=== PATIENT | male | born 1970 | race Hispanic/Latino ===

== ENCOUNTER 2017-07-16 09:31 | Inpatient (IN) | payer MEDICAID, OTHER ==
[2017-07-16] MEDS ORDERED: Sodium Chloride 0.9% 1,000 ML IV STA (10:10)
[2017-07-16] MEDS ORDERED: HYDROmorphone 2 mg/ml ISec IVP STA (10:10)
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
[2017-07-16 10:23] LABS: BASO # 0.03 K/mm3 (0.0-2.0); BASO % 0.2 % (0.0-3.0); EOS # 0.2 (0.0-0.7); EOS % 0.8 % (1.5-5.0); GRAN % 79.9 % (50.0-68.0); HEMATOCRIT 41.9 % (42.0-52.0); LYMPH # 2.7 (1.2-3.4); LYMPH % 14.2 % (22.0-35.0); MEAN CELL VOLUME 89.7 fl (80.0-105.0); MEAN CORPUSCULAR HEMOGLOBIN 31.5 pg (25.0-35.0); MEAN CORPUSCULAR HGB CONC 35.1 g/dl (31.0-37.0); MONO # 0.9 (0.1-0.6); MONO % 4.9 % (1.0-6.0); RED CELL DISTRIBUTION WIDTH 12.9 % (11.5-14.5); WHITE BLOOD COUNT 18.8 10^3/ul (4.5-11.0)
[2017-07-16 10:33] LABS: INR 0.99 (0.93-1.08); PARTIAL THROMBOPLASTIN TIME 25.9 Seconds (23.7-30.8)
[2017-07-16 10:35] LABS: ALB/GLOB RATIO 1.5 (1.1-1.8); ALKALINE PHOSPHATASE 82 U/L (38-126); ALT/SGPT 30 U/L (7-56); AMYLASE 74 U/L (35-125); AST/SGOT 29 U/L (17-59); BILIRUBIN,TOTAL 0.5 mg/dL (0.2-1.3); BLOOD UREA NITROGEN 13 mg/dL (7-21); CALCIUM 9.6 mg/dL (8.4-10.5); CARBON DIOXIDE 26 mmol/L (21-33); CHLORIDE 103 mmol/L (98-107); GFR AFRICAN-AMERICAN > 60; GLUCOSE,RANDOM 140 mg/dL (70-110); LIPASE 77 U/L (23-300); MAGNESIUM 1.7 mg/dL (1.7-2.2); SODIUM 141 mmol/L (132-148); TOTAL PROTEIN 7.9 g/dL (5.8-8.3)
--- NOTE | 2017-07-16 10:37 | RAD ---
PROCEDURE: CHEST RADIOGRAPH, 1 VIEW HISTORY: upper abdominal pain COMPARISON: Chest radiographs 11/08/2016. FINDINGS: LUNGS: Patient slightly rotated to the right however there is no acute infiltrate identified bilaterally. PLEURA: No pneumothorax or pleural fluid seen. CARDIOVASCULAR: Normal. OSSEOUS STRUCTURES: No significant abnormalities. VISUALIZED UPPER ABDOMEN: Normal. OTHER FINDINGS: None. IMPRESSION: No definite acute cardiopulmonary disease is seen in the interval.
[2017-07-16 10:47] LABS: TROPONIN I < 0.01 ng/mL
[2017-07-16] MEDS ORDERED: HYDROmorphone 1 mg/ml ISec IVP STA (11:08)
[2017-07-16 11:28] LABS: VENOUS BLOOD GAS BASE EXCESS -0.2 mmol/L (0.0-2.0); VENOUS BLOOD PH 7.33 (7.32-7.43)
[2017-07-16 11:52] LABS: URINE BILIRUBIN NEGATIVE (NEGATIVE); URINE BLOOD NEGATIVE (NEGATIVE); URINE GLUCOSE (UA) NEGATIVE (NEGATIVE); URINE KETONE TRACE mg/dL (NEGATIVE); URINE LEUKOCYTE ESTERASE NEGATIVE Leu/uL (NEGATIVE); URINE PROTEIN NEGATIVE mg/dL (<30 mg/dL); URINE UROBILINOGEN 0.2 E.U./dL (<1 E.U./dL)
[2017-07-16 11:57] LABS: URINE APPEARANCE CLEAR (CLEAR); URINE COLOR YELLOW (YELLOW)
--- NOTE | 2017-07-16 14:26 | CT ---
PROCEDURE: CT Abdomen and Pelvis without intravenous contrast HISTORY: severe diffuse pain COMPARISON: None. TECHNIQUE: Helical CT of the abdomen and pelvis was performed without oral or intravenous contrast as per referring physician request . Contrast Dose: None Radiation dose: Total exam DLP = mGy-cm. This CT exam was performed using one or more of the following dose reduction techniques: Automated exposure control, adjustment of the mA and/or kV according to patient size, and/or use of iterative reconstruction technique. FINDINGS: LOWER THORAX: Bilateral basilar dependent atelectasis identified. LIVER: Unremarkable. No gross lesion or ductal dilatation. GALLBLADDER AND BILE DUCTS: Unremarkable. PANCREAS: Unremarkable. No gross lesion or ductal dilatation. SPLEEN: Unremarkable. ADRENALS: Unremarkable. No mass. KIDNEYS AND URETERS: Obstructive uropathy bilaterally however punctate intrarenal calculi are scattered in both kidneys. No perinephric reaction bilaterally. VASCULATURE: Unremarkable. No aortic aneurysm. BOWEL: Unremarkable. No obstruction. No gross mural thickening. Sigmoid diverticulosis without diverticulitis. APPENDIX: Not clearly identified. No definite CT pattern to suggest appendicitis at this time of the study is limited due lack of oral and intravenous contrast agents. PERITONEUM: Unremarkable. No free fluid. No free air. LYMPH NODES: Unremarkable. No enlarged lymph nodes. BLADDER: Unremarkable. REPRODUCTIVE: Enlarged prostate gland. BONES: Grade 1 spondylolisthesis L5-S1. OTHER FINDINGS: None. IMPRESSION: 1. Limited study due to lack of contrast agents however no definite acute abdominal or pelvic findings are appreciable. 2. Sigmoid diverticulosis. 3. Multiple punctate intrarenal calculi bilaterally without obstructive uropathy. 4. Grade 1 spondylolisthesis of L5-S1.
[2017-07-16 14:55] LABS: VENOUS BLOOD GAS BASE EXCESS 2.2 mmol/L (0.0-2.0); VENOUS BLOOD PH 7.37 (7.32-7.43)
[2017-07-16] MEDS ORDERED: Sodium Chloride 0.9% 2,000 ML IV SCH (16:00)
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
[2017-07-16] MEDS: Morphine 2 mg/ml ISec IVP PRN ×2 (17:02→21:10)
[2017-07-16] MEDS: cefTRIAXone 1 gm 1 GM/100 ML BAG IVPB SCH (17:24)
[2017-07-16 17:53] VITALS: TEMP 98.4
[2017-07-16 19:23] VITALS: BMI 23.5
[2017-07-16] MEDS ORDERED: Pneumococcal 23-Valent Vaccine IM ONE (19:23)
[2017-07-16] MEDS: metroNIDAZOLE IV 500 mg/100 ml 500 MG/100 ML BAG IVPB SCH (21:10)
[2017-07-17] MEDS: Morphine 2 mg/ml ISec IVP PRN ×4 (01:34→16:46)
[2017-07-17] MEDS: metroNIDAZOLE IV 500 mg/100 ml 500 MG/100 ML BAG IVPB SCH ×2 (05:13→14:36)
[2017-07-17 06:28] LABS: BASO # 0.03 K/mm3 (0.0-2.0); BASO % 0.4 % (0.0-3.0); EOS # 0.3 (0.0-0.7); EOS % 3.3 % (1.5-5.0); GRAN # 5.61 (1.4-6.5); GRAN % 65.4 % (50.0-68.0); HEMATOCRIT 38.5 % (42.0-52.0); LYMPH # 2.1 (1.2-3.4); MEAN CELL VOLUME 90.2 fl (80.0-105.0); MEAN CORPUSCULAR HEMOGLOBIN 30.4 pg (25.0-35.0); MEAN CORPUSCULAR HGB CONC 33.8 g/dl (31.0-37.0); MEAN PLATELET VOLUME 9.8 fl (7.0-11.0); MONO # 0.6 (0.1-0.6); MONO % 6.9 % (1.0-6.0); RED CELL DISTRIBUTION WIDTH 13.4 % (11.5-14.5); WHITE BLOOD COUNT 8.6 10^3/ul (4.5-11.0)
[2017-07-17 07:00] LABS: ALB/GLOB RATIO 1.5 (1.1-1.8); ALKALINE PHOSPHATASE 57 U/L (38-126); ALT/SGPT 22 U/L (7-56); AST/SGOT 26 U/L (17-59); BILIRUBIN,TOTAL 0.7 mg/dL (0.2-1.3); BLOOD UREA NITROGEN 10 mg/dL (7-21); CALCIUM 8.9 mg/dL (8.4-10.5); CARBON DIOXIDE 28 mmol/L (21-33); CHLORIDE 103 mmol/L (98-107); GFR AFRICAN-AMERICAN > 60; GLUCOSE,RANDOM 104 mg/dL (70-110); POTASSIUM 4.2 mmol/L (3.6-5.0); SODIUM 139 mmol/L (132-148); TOTAL PROTEIN 6.4 g/dL (5.8-8.3)
--- NOTE | 2017-07-17 08:50 | CARD ---
APPROVED REPORT EKG Measurement Heart [id number] <Conclusion> Normal sinus rhythm with sinus arrhythmia LVH by voltage No change except the rate is slower
[2017-07-17] MEDS ORDERED: Propofol 10 mg/ml Inj (20 ML) ONE ×2 (09:55→10:07)
[2017-07-17] MEDS ORDERED: Midazolam 2 MG/2 ML VIAL ONE (09:55)
[2017-07-17] MEDS ORDERED: Lidocaine 1% Inj (20ml) ONE (09:56)
[2017-07-17] MEDS ORDERED: Sodium Chloride 0.9% 1,000 ML IV SCH (10:30)
[2017-07-17 11:26] VITALS: O2SAT 98
[2017-07-17 11:28] VITALS: BP 127/85; PULSE 686; RESP 12
[2017-07-17] MEDS: cefTRIAXone 1 gm 1 GM/100 ML BAG IVPB SCH (11:41)
--- NOTE | 2017-07-17 14:59 | CON ---
DATE: 07/17/2017 GASTROENTEROLOGY CONSULTATION REQUESTING PHYSICIAN: Dr. Hammond. REASON FOR CONSULT: I have been asked to see this 47-year-old male with a history of gastric and duodenal ulcers, who came to the hospital after waking up with severe epigastric pain followed by vomiting, followed by some hematemesis. The patient came to the emergency room for further treatment. CT scan of the abdomen and pelvis was unremarkable for any acute findings. The patient's last endoscopy was 3 years ago. The patient was prescribed Protonix, but stopped taking it as he could not afford it. The patient states that his abdominal pain has improved this morning. He denies any further hematemesis. PAST MEDICAL HISTORY: Notable for gastric and duodenal ulcers. PAST SURGICAL HISTORY: Notable for appendectomy. SOCIAL HISTORY: The patient smokes up to a pack of cigarettes per day. He uses cocaine periodically. FAMILY HISTORY: Noncontributory. PHYSICAL EXAMINATION: GENERAL: Well-developed male lying in bed, no acute distress. VITAL SIGNS: Reveal temperature of 98.4, blood pressure 153/87, heart rate of 80. HEENT: Reveal sclerae to be white. Conjunctivae pink. NECK: Supple. CHEST: Lungs clear. HEART: Exam reveals regular rate and rhythm. ABDOMEN: Soft, mild epigastric tenderness. No rebound. No guarding. EXTREMITIES: Show no edema. LABORATORY DATA: Reveal white blood cell count went down from 18.8 to 8.6, hemoglobin is 13. Chemistries show normal electrolytes including normal BUN. IMPRESSION: A 47-year-old male admitted to the hospital with epigastric pain, nausea, vomiting, hematemesis. We must rule out recurrent ulcer disease. I do not believe the patient has an active GI bleed, the hematemesis maybe secondary to mucosal tear from persistent vomiting. RECOMMENDATIONS: 1. Continue PPI. 2. I will schedule the patient for an upper endoscopy for this morning. Win العلي MD
--- NOTE | 2017-07-17 17:42 | CP.PCM.DIS ---
<Elgin[place]acoma - Last Filed: 07/17/17 17:42> Provider - Provider Date of Admission: 07/16/17 14:07 Attending physician: Naida Hammond MD Primary care physician: NO PRIMARY CARE PROVIDER Time Spent in preparation of Discharge (in minutes): 45 Hospital Course - Lab Results Lab Results: Most Recent Lab Values WBC 8.6 10^3/ul (4.5-11.0) D 07/17/17 06:00 RBC 4.27 10^6/uL (3.5-6.1) 07/17/17 06:00 Hgb 13.0 g/dL (14.0-18.0) L 07/17/17 06:00 Hct 38.5 % (42.0-52.0) L 07/17/17 06:00 MCV 90.2 fl (80.0-105.0) 07/17/17 06:00 MCH 30.4 pg (25.0-35.0) 07/17/17 06:00 MCHC 33.8 g/dl (31.0-37.0) 07/17/17 06:00 RDW 13.4 % (11.5-14.5) 07/17/17 06:00 Plt Count 257 10^3/uL (120.0-450.0) 07/17/17 06:00 MPV 9.8 fl (7.0-11.0) 07/17/17 06:00 Gran % 65.4 % (50.0-68.0) 07/17/17 06:00 Lymph % (Auto) 24.0 % (22.0-35.0) 07/17/17 06:00 [place] % (Auto) 6.9 % (1.0-6.0) H 07/17/17 06:00 Eos % (Auto) 3.3 % (1.5-5.0) 07/17/17 06:00 Baso % (Auto) 0.4 % (0.0-3.0) 07/17/17 06:00 Gran # 5.61 (1.4-6.5) 07/17/17 06:00 Lymph # 2.1 (1.2-3.4) 07/17/17 06:00 [place] # 0.6 (0.1-0.6) 07/17/17 06:00 Eos # 0.3 (0.0-0.7) 07/17/17 06:00 Baso # 0.03 K/mm3 (0.0-2.0) 07/17/17 06:00 PT 10.7 Seconds (9.9-11.8) 07/16/17 09:48 INR 0.99 (0.93-1.08) 07/16/17 09:48 APTT 25.9 Seconds (23.7-30.8) 07/16/17 09:48 pO2 31 mm/Hg (30-55) 07/16/17 14:42 VBG pH 7.37 (7.32-7.43) 07/16/17 14:42 VBG pCO2 49.0 (40-60) 07/16/17 14:42 VBG HCO3 28.3 mmol/l (21-28) H 07/16/17 14:42 VBG Total CO2 29.8 mmol.L (22-28) H 07/16/17 14:42 VBG O2 Sat (Calc) 61.5 % (40-65) 07/16/17 14:42 VBG Base Excess 2.2 mmol/L (0.0-2.0) H 07/16/17 14:42 VBG Potassium 4.9 mmol/L (3.6-5.2) 07/16/17 14:42 Sodium 138.0 mmol/L (132-148) 07/16/17 14:42 Chloride 105.0 mmol/L (98-107) 07/16/17 14:42 Glucose 109 mg/dl (75-110) 07/16/17 14:42 Lactate 1.8 mmol/L (0.7-2.1) 07/16/17 14:42 FiO2 21.0 % 07/16/17 14:42 Sodium 139 mmol/L (132-148) 07/17/17 06:00 Potassium 4.2 mmol/L (3.6-5.0) 07/17/17 06:00 Chloride 103 mmol/L (98-107) 07/17/17 06:00 Carbon Dioxide 28 mmol/L (21-33) 07/17/17 06:00 Anion Gap 12 (10-20) 07/17/17 06:00 BUN 10 mg/dL (7-21) 07/17/17 06:00 Creatinine 0.8 mg/dL (0.5-1.4) 07/17/17 06:00 Est GFR ( Amer) > 60 07/17/17 06:00 Est GFR (Non-Af Amer) > 60 07/17/17 06:00 Random Glucose 104 mg/dL (70-110) 07/17/17 06:00 Calcium 8.9 mg/dL (8.4-10.5) 07/17/17 06:00 Magnesium 1.7 mg/dL (1.7-2.2) 07/16/17 09:48 Total Bilirubin 0.7 mg/dL (0.2-1.3) 07/17/17 06:00 AST 26 U/L (17-59) 07/17/17 06:00 ALT 22 U/L (7-56) 07/17/17 06:00 Alkaline Phosphatase 57 U/L (38-126) 07/17/17 06:00 Lactate Dehydrogenase 511 U/L (333-699) 07/16/17 09:48 Total Creatine Kinase 116 U/L (35-230) 07/16/17 09:48 Troponin I < 0.01 ng/mL 07/16/17 09:48 Total Protein 6.4 g/dL (5.8-8.3) 07/17/17 06:00 Albumin 3.8 g/dL (3.0-4.8) 07/17/17 06:00 Globulin 2.6 gm/dL 07/17/17 06:00 Albumin/Globulin Ratio 1.5 (1.1-1.8) 07/17/17 06:00 Amylase 74 U/L (35-125) 07/16/17 09:48 Lipase 77 U/L (23-300) 07/16/17 09:48 Venous Blood Potassium 4.9 mmol/L (3.6-5.2) 07/16/17 14:42 Urine Color Yellow (YELLOW) 07/16/17 11:30 Urine Appearance Clear (CLEAR) 07/16/17 11:30 Urine pH 6.0 (4.7-8.0) 07/16/17 11:30 Ur Specific [place] 1.020 (1.005-1.035) 07/16/17 11:30 Urine Protein Negative mg/dL (<30 mg/dL) 07/16/17 11:30 Urine Glucose (UA) Negative mg/dL (NEGATIVE) 07/16/17 11:30 Urine Ketones Trace mg/dL (NEGATIVE) H 07/16/17 11:30 Urine Blood Negative (NEGATIVE) 07/16/17 11:30 Urine Nitrate Negative (NEGATIVE) 07/16/17 11:30 Urine Bilirubin Negative (NEGATIVE) 07/16/17 11:30 Urine Urobilinogen 0.2 E.U./dL (<1 E.U./dL) 07/16/17 11:30 Ur Leukocyte Esterase Negative Quinn/uL (NEGATIVE) 07/16/17 11:30 Salicylates < 1 mg/dL (2.0-20.0) L 07/16/17 09:48 Urine Opiates Screen Positive (NEGATIVE) H 07/16/17 11:30 Urine Methadone Screen Negative (NEGATIVE) 07/16/17 11:30 Acetaminophen < 10.0 ug/ml (10.0-20.0) L 07/16/17 09:48 Ur Barbiturates Screen Negative (NEGATIVE) 07/16/17 11:30 Ur Phencyclidine Scrn Negative (NEGATIVE) 07/16/17 11:30 Ur Amphetamines Screen Negative (NEGATIVE) 07/16/17 11:30 U Benzodiazepines Scrn Negative (NEGATIVE) 07/16/17 11:30 U Oth Cocaine Metabols Negative (NEGATIVE) 07/16/17 11:30 U Cannabinoids Screen Positive (NEGATIVE) H 07/16/17 11:30 Alcohol, Quantitative < 10 mg/dL (0-10) 07/16/17 09:40 - Hospital Course Hospital Course: This is a 47 year old man with a past medical history of esophageal, gastric and duodenal ulcers who comes complaining of epigastric abdominal pain and vomiting for 5 hours. The patient reports multiple episodes of hematemesis. He reports eating sausage last night with no pain or discomfort. The patient reports have a normal bowel movement this morning. The patient denies any headache, changes in vision, constipation, or any other complaints. The patient also had an elevated white count upon admission which was more likely due to the vomiting. The patient was admitted and seen by the GI doctor who determined he needed to have a upper endoscopy performed. The results showed a small hiatus hernia, GE junction identified, stomach normal, duodenum normal, and cardia and gastric fundus normal on retroflexion. The patient was afebrile and had no leukocytosis. The patient was seen by the medical team and GI and was cleared to be discharged with Pantoprazole and to follow up with GI and his PMD within one week of discharge. Discharge Exam - Head Exam Head Exam: ATRAUMATIC, NORMAL INSPECTION, NORMOCEPHALIC - Eye Exam Eye Exam: EOMI, Normal appearance, PERRL Pupil Exam: NORMAL ACCOMODATION, PERRL. absent: Irregular, Unequal - ENT Exam ENT Exam: Mucous Membranes Moist - Respiratory Exam Respiratory Exam: Clear to PA & Lateral, NORMAL BREATHING PATTERN, UNREMARKABLE. absent: Accessory Muscle Use, Chest Wall Tenderness, Respiratory Distress - Cardiovascular Exam Cardiovascular Exam: REGULAR RHYTHM, RRR, +S1, +S2. absent: Gallop, Rubs - GI/Abdominal Exam GI & Abdominal Exam: Normal Bowel Sounds, Unremarkable. absent: Diminished Bowel Sounds, Organomegaly - Extremities Exam Extremities exam: full ROM - Neurological Exam Neurological exam: Alert, CN II-XII Intact, Oriented x3, Reflexes Normal - Psychiatric Exam Psychiatric exam: Normal Affect, Normal Mood - Skin Skin Exam: Dry, Intact, Normal Color Discharge Plan - Discharge Medications Prescriptions: Pantoprazole [Protonix EC Tab] 40 mg PO DAILY #30 ect - Follow Up Plan Condition: FAIR Disposition: HOME/ ROUTINE Instructions: Peptic Ulcer (DC), Hiatal Hernia (DC), Gastrointestinal Bleeding (DC), Diet for Ulcers and Gastritis (GEN), Upper Endoscopy (DC), Acute Abdominal Pain (DC), Epigastric Pain (GEN) Additional Instructions: Patient advised to follow up with PMD within one week of discharge. Patient advised to alter diet. Patient advised to followup with GI within one week of discharge. Patient should return to E.D. for any new or worsening symptoms. Avoid heavy lifting, avoid straining with bowel movement. Do not take any ASA, Ibuprofen, including Advil, Motrin or Nuprin, Naproxen, including Aleve and other [id number]-vcajsqzgxatb drugs. Take Protonix 40 PO daily. Referrals: Win العلي MD [Staff Provider] - PCP,NO [Primary Care Provider] - <Naida Hammond - Last Filed: 07/18/17 12:01> Provider - Provider Date of Admission: 07/16/17 14:07 Attending physician: Naida Hammond MD Primary care physician: NO PRIMARY CARE PROVIDER Hospital Course - Lab Results Lab Results: Most Recent Lab Values WBC 8.6 10^3/ul (4.5-11.0) D 07/17/17 06:00 RBC 4.27 10^6/uL (3.5-6.1) 07/17/17 06:00 Hgb 13.0 g/dL (14.0-18.0) L 07/17/17 06:00 Hct 38.5 % (42.0-52.0) L 07/17/17 06:00 MCV 90.2 fl (80.0-105.0) 07/17/17 06:00 MCH 30.4 pg (25.0-35.0) 07/17/17 06:00 MCHC 33.8 g/dl (31.0-37.0) 07/17/17 06:00 RDW 13.4 % (11.5-14.5) 07/17/17 06:00 Plt Count 257 10^3/uL (120.0-450.0) 07/17/17 06:00 MPV 9.8 fl (7.0-11.0) 07/17/17 06:00 Gran % 65.4 % (50.0-68.0) 07/17/17 06:00 Lymph % (Auto) 24.0 % (22.0-35.0) 07/17/17 06:00 [place] % (Auto) 6.9 % (1.0-6.0) H 07/17/17 06:00 Eos % (Auto) 3.3 % (1.5-5.0) 07/17/17 06:00 Baso % (Auto) 0.4 % (0.0-3.0) 07/17/17 06:00 Gran # 5.61 (1.4-6.5) 07/17/17 06:00 Lymph # 2.1 (1.2-3.4) 07/17/17 06:00 [place] # 0.6 (0.1-0.6) 07/17/17 06:00 Eos # 0.3 (0.0-0.7) 07/17/17 06:00 Baso # 0.03 K/mm3 (0.0-2.0) 07/17/17 06:00 PT 10.7 Seconds (9.9-11.8) 07/16/17 09:48 INR 0.99 (0.93-1.08) 07/16/17 09:48 APTT 25.9 Seconds (23.7-30.8) 07/16/17 09:48 pO2 31 mm/Hg (30-55) 07/16/17 14:42 VBG pH 7.37 (7.32-7.43) 07/16/17 14:42 VBG pCO2 49.0 (40-60) 07/16/17 14:42 VBG HCO3 28.3 mmol/l (21-28) H 07/16/17 14:42 VBG Total CO2 29.8 mmol.L (22-28) H 07/16/17 14:42 VBG O2 Sat (Calc) 61.5 % (40-65) 07/16/17 14:42 VBG Base Excess 2.2 mmol/L (0.0-2.0) H 07/16/17 14:42 VBG Potassium 4.9 mmol/L (3.6-5.2) 07/16/17 14:42 Sodium 138.0 mmol/L (132-148) 07/16/17 14:42 Chloride 105.0 mmol/L (98-107) 07/16/17 14:42 Glucose 109 mg/dl (75-110) 07/16/17 14:42 Lactate 1.8 mmol/L (0.7-2.1) 07/16/17 14:42 FiO2 21.0 % 07/16/17 14:42 Sodium 139 mmol/L (132-148) 07/17/17 06:00 Potassium 4.2 mmol/L (3.6-5.0) 07/17/17 06:00 Chloride 103 mmol/L (98-107) 07/17/17 06:00 Carbon Dioxide 28 mmol/L (21-33) 07/17/17 06:00 Anion Gap 12 (10-20) 07/17/17 06:00 BUN 10 mg/dL (7-21) 07/17/17 06:00 Creatinine 0.8 mg/dL (0.5-1.4) 07/17/17 06:00 Est GFR ( Amer) > 60 07/17/17 06:00 Est GFR (Non-Af Amer) > 60 07/17/17 06:00 Random Glucose 104 mg/dL (70-110) 07/17/17 06:00 Calcium 8.9 mg/dL (8.4-10.5) 07/17/17 06:00 Magnesium 1.7 mg/dL (1.7-2.2) 07/16/17 09:48 Total Bilirubin 0.7 mg/dL (0.2-1.3) 07/17/17 06:00 AST 26 U/L (17-59) 07/17/17 06:00 ALT 22 U/L (7-56) 07/17/17 06:00 Alkaline Phosphatase 57 U/L (38-126) 07/17/17 06:00 Lactate Dehydrogenase 511 U/L (333-699) 07/16/17 09:48 Total Creatine Kinase 116 U/L (35-230) 07/16/17 09:48 Troponin I < 0.01 ng/mL 07/16/17 09:48 Total Protein 6.4 g/dL (5.8-8.3) 07/17/17 06:00 Albumin 3.8 g/dL (3.0-4.8) 07/17/17 06:00 Globulin 2.6 gm/dL 07/17/17 06:00 Albumin/Globulin Ratio 1.5 (1.1-1.8) 07/17/17 06:00 Amylase 74 U/L (35-125) 07/16/17 09:48 Lipase 77 U/L (23-300) 07/16/17 09:48 Venous Blood Potassium 4.9 mmol/L (3.6-5.2) 07/16/17 14:42 Urine Color Yellow (YELLOW) 07/16/17 11:30 Urine Appearance Clear (CLEAR) 07/16/17 11:30 Urine pH 6.0 (4.7-8.0) 07/16/17 11:30 Ur Specific [place] 1.020 (1.005-1.035) 07/16/17 11:30 Urine Protein Negative mg/dL (<30 mg/dL) 07/16/17 11:30 Urine Glucose (UA) Negative mg/dL (NEGATIVE) 07/16/17 11:30 Urine Ketones Trace mg/dL (NEGATIVE) H 07/16/17 11:30 Urine Blood Negative (NEGATIVE) 07/16/17 11:30 Urine Nitrate Negative (NEGATIVE) 07/16/17 11:30 Urine Bilirubin Negative (NEGATIVE) 07/16/17 11:30 Urine Urobilinogen 0.2 E.U./dL (<1 E.U./dL) 07/16/17 11:30 Ur Leukocyte Esterase Negative Quinn/uL (NEGATIVE) 07/16/17 11:30 Salicylates < 1 mg/dL (2.0-20.0) L 07/16/17 09:48 Urine Opiates Screen Positive (NEGATIVE) H 07/16/17 11:30 Urine Methadone Screen Negative (NEGATIVE) 07/16/17 11:30 Acetaminophen < 10.0 ug/ml (10.0-20.0) L 07/16/17 09:48 Ur Barbiturates Screen Negative (NEGATIVE) 07/16/17 11:30 Ur Phencyclidine Scrn Negative (NEGATIVE) 07/16/17 11:30 Ur Amphetamines Screen Negative (NEGATIVE) 07/16/17 11:30 U Benzodiazepines Scrn Negative (NEGATIVE) 07/16/17 11:30 U Oth Cocaine Metabols Negative (NEGATIVE) 07/16/17 11:30 U Cannabinoids Screen Positive (NEGATIVE) H 07/16/17 11:30 Alcohol, Quantitative < 10 mg/dL (0-10) 07/16/17 09:40 Attending/Attestation - Attestation I have personally seen and examined this patient.: Yes I have fully participated in the care of the patient.: Yes I have reviewed all pertinent clinical information, including history, physical exam and plan: Yes Notes (Text): 07/17/17 47 year old male with past medical history of PUD who presented with complaint of epigastric pain and hematemesis. He was on iv protonix, analgesics and antiemetic prn. His last EGD showed gastric, duodenal and esophageal ulcers. He had leukocytosis, possibly reactive which improved. CT abd/pelvis showed sigmoid diverticulosis. He was seen by GI and underwent EGD as above. His diet was advanced which he tolerted. Patient will be discharged home to follow up with his pmd. Counselled on avoiding NSAIDs. Follow up with GI for biopsy results. Naida Hammond MD Hospitalist.
== END 2017-07-17 18:14 | disposition home or self-care (01) | DRG 379 ==
LOC: ED 09:31 → ERH 14:07 → 5RSO 15:38
PROVIDERS: ADMIT Internal Medicine; ATTEND Internal Medicine
PROC: 0DJ08ZZ Inspection of Upper Intestinal Tract, Via Natural or Artificial Opening Endoscopic (ICD-10-PCS; principal; 2017-07-17 10:30)
DX: K92.0 Hematemesis (principal); D72.829 Elevated white blood cell count, unspecified; K57.30 Diverticulosis of large intestine without perforation or abscess without bleeding; K44.9 Diaphragmatic hernia without obstruction or gangrene; K21.9 Gastro-esophageal reflux disease without esophagitis; M43.16 Spondylolisthesis, lumbar region; N20.0 Calculus of kidney; F17.210 Nicotine dependence, cigarettes, uncomplicated; Z87.11 Personal history of peptic ulcer disease; Z90.49 Acquired absence of other specified parts of digestive tract

== ENCOUNTER 2018-02-15 08:02 | Emergency (ER) | payer MEDICAID, OTHER ==
[2018-02-15 08:06] VITALS: RESP 18; TEMP 97.8
[2018-02-15 08:07] VITALS: BMI 21.1
--- NOTE | 2018-02-15 08:36 | ED PDOC ---
Arrival/HPI - General Chief Complaint: Back Pain Time Seen by Provider: 02/15/18 08:16 Historian: Patient - History of Present Illness Narrative History of Present Illness (Text): 02/15/18 08:30 48 year old male, whose PMH includes GERD, neuropathy, and chronic lower back pain, who presents to the emergency department complaining of lower back pain that radiates to the left leg. Patient reports the pain became worse this morning as he was walking in his kitchen and could not move causing him to call EMT for assistance. Patient denies any dysuria, hematuria, shortness of breath, chest pain, or other complaints. PMD: None Time/Duration: Prior to Arrival Symptom Onset: Gradual Symptom Course: Unchanged Activities at Onset: Light Context: Walking, Home Past Medical History - Provider Review Nursing Documentation Reviewed: Yes - Past History Past History: No Previous - Infectious Disease Hx of Infectious Diseases: None - Tetanus Immunization Tetanus Immunization: Up to Date - Past Medical History Past Medical History: Unable to Obtain - Cardiac Hx Cardiac Disorders: No - Pulmonary Hx Respiratory Disorders: No - Neurological Hx Neurological Disorder: No - HEENT Hx HEENT Disorder: No - Renal Hx Renal Disorder: No - Endocrine/Metabolic Hx Endocrine Disorders: No - Hematological/Oncological Hx Blood Transfusions: No - Integumentary Hx Dermatological Disorder: Yes Other/Comment: hx snake bite - Musculoskeletal/Rheumatological Hx Musculoskeletal Disorders: No - Gastrointestinal Hx Gastrointestinal Disorders: Yes Hx Gastroesophageal Reflux: Yes - Genitourinary/Gynecological Hx Genitourinary Disorders: No - Psychiatric Hx Psychophysiologic Disorder: Yes Hx Substance Use: Yes (marijuana) Other/Comment: suicidal ideation and attempt/drug overdose w/etoh use and cut wrists - Past Surgical History Past Surgical History: No Previous - Surgical History Hx Appendectomy: Yes - Anesthesia Hx Anesthesia Reactions: No Hx Malignant Hyperthermia: No - Suicidal Assessment Feels Threatened In Home Enviroment: No Family/Social History - Physician Review Nursing Documentation Reviewed: Yes Family/Social History: Unknown Family HX Smoking Status: Former Smoker Hx Alcohol Use: Yes (quit 8 months ago) Hx Substance Use: Yes (marijuana) Hx Substance Use Treatment: No Allergies/Home Meds Allergies/Adverse Reactions: Allergies No Known Allergies Allergy (Verified 02/15/18 08:13) Review of Systems - Physician Review All systems were reviewed & negative as marked: Yes - Review of Systems Constitutional: absent: Fevers Respiratory: absent: SOB Cardiovascular: absent: Chest Pain Genitourinary Male: absent: Dysuria Musculoskeletal: Back Pain (lower back pain ) Physical Exam Vital Signs Reviewed: Yes Vital Signs Temp Pulse Resp BP Pulse Ox 02/15/18 13:10 97.8 F 56 L 105/67 96 02/15/18 11:30 97.8 F 66 18 126/71 97 02/15/18 11:25 60 18 134/74 98 02/15/18 08:06 97.8 F 84 18 136/80 96 Temperature: Afebrile Blood Pressure: Normal Pulse: Regular Respiratory Rate: Normal Appearance: Positive for: Well-Appearing, Non-Toxic, Comfortable Pain Distress: Mild Mental Status: Positive for: Alert and Oriented X 3 - Systems Exam Head: Present: Atraumatic, Normocephalic Pupils: Present: PERRL Extroacular Muscles: Present: EOMI Conjunctiva: Present: Normal Respiratory/Chest: Present: Clear to Auscultation, Good Air Exchange. No: Respiratory Distress, Accessory Muscle Use, Wheezes, Rales, Rhonchi Cardiovascular: Present: Regular Rate and Rhythm, Normal S1, S2. No: Murmurs Abdomen: No: Tenderness, Distention, Peritoneal Signs, Rebound, Guarding Back: Present: Paraspinal Tenderness (lumbar tenderness), Pain with Leg Raise ( left leg). No: Normal Inspection Lower Extremity: Present: Normal Inspection, NORMAL PULSES, Normal ROM, Neurovascularly Intact. No: Edema Neurological: Present: GCS=15, CN II-XII Intact, Speech Normal, Other ((+)4/5 plantar flexion on left) Skin: Present: Warm, Dry, Normal Color. No: Rashes Psychiatric: Present: Alert, Oriented x 3, Normal Insight, Normal Concentration Medical Decision Making ED Course and Treatment: 02/15/18 Impression: 48 year old male with paraspinal lumbar tenderness complaining of lower back pain. Plan: -- Flexeril and Toradol -- Reassess and disposition Progress Notes: 02/15/18 12:[address] Carias, who is aware of plan and agrees to see patient tomorrow in his office. 02/15/18 14:22 case ambulated out of emergency room in [facility]. pain improved. - Lab Interpretations Lab Results: 02/15/18 10:15 02/15/18 10:15 Lab Results 02/15/18 10:15: Urine Color Yellow, Urine Appearance Clear, Urine pH 7.0, Ur Specific [place] 1.015, Urine Protein Negative, Urine Glucose (UA) Negative, Urine Ketones Negative, Urine Blood Negative, Urine Nitrate Negative, Urine Bilirubin Negative, Urine Urobilinogen 0.2, Ur Leukocyte Esterase Negative 02/15/18 10:15: Sodium 139, Potassium 4.8, Chloride 101, Carbon Dioxide 30, Anion Gap 13, BUN 11, Creatinine 0.9, Est GFR ( Amer) > 60, Est GFR (Non- Af Amer) > 60, Random Glucose 95, Calcium 9.7, Total Bilirubin 1.0, AST 31, ALT 40, Alkaline Phosphatase 66, Total Protein 7.4, Albumin 4.4, Globulin 2.9, Albumin/Globulin Ratio 1.5 02/15/18 10:15: PT 11.5, INR 1.00, APTT 34.4 02/15/18 10:15: WBC 7.8, RBC 4.59, Hgb 14.4, Hct 42.1, MCV 91.7, MCH 31.4, MCHC 34.2, RDW 13.2, Plt Count 307, MPV 9.7, Gran % 56.6, Lymph % (Auto) 30.1, [place] % (Auto) 9.1 H, Eos % (Auto) 3.8, Baso % (Auto) 0.4, Gran # 4.43, Lymph # (Auto ) 2.4, [place] # (Auto) 0.7 H, Eos # (Auto) 0.3, Baso # (Auto) 0.03 - RAD Interpretation Radiology Orders: 02/15/18 09:21 SPINAL CANAL LUMBAR W/O CONT [MRI] Stat - Medication Orders Current Medication Orders: Discontinued Medications Acetaminophen (Tylenol 325mg Tab) 975 mg PO STAT STA Stop: 02/15/18 09:23 Last Admin: 02/15/18 09:49 Dose: Not Given Non-Admin Reason: Patient Refused Cyclobenzaprine HCl (Flexeril) 10 mg PO STAT STA Stop: 02/15/18 08:33 Last Admin: 02/15/18 09:22 Dose: 10 mg Ketorolac Tromethamine (Toradol) 30 mg IM STAT STA Stop: 02/15/18 08:33 Last Admin: 02/15/18 09:21 Dose: 30 mg MAR Pain Assessment Document 02/15/18 09:21 SZA (Rec: 02/15/18 09:22 SZA [id number]) Pain Reassessment Is this a pain reassessment? No Sleep Is patient sleeping during reassessment? Yes Pain Scale Used Pain Scale Used Numeric Description Description Intermittent Intensity of Pain at present 5 IM Administration Charges Document 02/15/18 09:21 SZA (Rec: 02/15/18 09:22 SZA [id number]) Charges for Administration # of IM Administrations 1 Lidocaine (Lidoderm) 1 ea TD STAT STA Stop: 02/15/18 09:23 Last Admin: 02/15/18 09:49 Dose: 1 ea MAR Transdermal Patch Site Document 02/15/18 09:49 SZA (Rec: 02/15/18 09:49 SZA [id number]) Transdermal Patch Site Transdermal Patch Site Right Lower Back - Scribe Statement The provider has reviewed the documentation as recorded by the Neilibe Paola Meredith Provider Scribe Attestation: All medical record entries made by the Scribe were at my direction and personally dictated by me. I have reviewed the chart and agree that the record accurately reflects my personal performance of the history, physical exam, medical decision making, and the department course for this patient. I have also personally directed, reviewed, and agree with the discharge instructions and disposition. Disposition/Present on Arrival - Present on Arrival Any Indicators Present on Arrival: No History of DVT/PE: No History of Uncontrolled Diabetes: No Urinary Catheter: No History of Decub. Ulcer: No History Surgical Site Infection Following: None - Disposition Have Diagnosis and Disposition been Completed?: Yes Diagnosis: Spondylolisthesis Disposition: HOME/ ROUTINE Disposition Time: 01:00 Condition: STABLE Discharge Instructions (ExitCare): Spondylolisthesis Additional Instructions: please follow up with doctor/specialist. return to emergency room worsening symptoms or concerns. Prescriptions: Cyclobenzaprine [Cyclobenzaprine HCl] 10 mg PO DAILY PRN #10 tab PRN Reason: Muscle Spasm Lidocaine 5% [Lidoderm] 1 ea TD DAILY PRN #4 patch PRN Reason: Pain, Mild (1-3) Naproxen 500 mg PO BID PRN #14 tab PRN Reason: Pain, Mild (1-3) Referrals: Giovanni Garnett MD [Staff Provider] - Follow up with primary Visco,Dom Alfonso MD [Staff Provider] - Follow up with primary Forms: [email or web address] (Malay)
[2018-02-15] MEDS ORDERED: Lidocaine 5% Patch TD STA (09:22)
[2018-02-15 10:19] LABS: BASO # 0.03 K/mm3 (0.0-2.0); BASO % 0.4 % (0.0-3.0); EOS # 0.3 (0.0-0.7); EOS % 3.8 % (1.5-5.0); GRAN # 4.43 (1.4-6.5); GRAN % 56.6 % (50.0-68.0); HEMOGLOBIN 14.4 g/dL (14.0-18.0); LYMPH # 2.4 (1.2-3.4); LYMPH % 30.1 % (22.0-35.0); MEAN CELL VOLUME 91.7 fl (80.0-105.0); MEAN CORPUSCULAR HEMOGLOBIN 31.4 pg (25.0-35.0); MEAN CORPUSCULAR HGB CONC 34.2 g/dl (31.0-37.0); MEAN PLATELET VOLUME 9.7 fl (7.0-11.0); MONO # 0.7 (0.1-0.6); MONO % 9.1 % (1.0-6.0); RBC 4.59 10^6/uL (3.5-6.1); RED CELL DISTRIBUTION WIDTH 13.2 % (11.5-14.5); URINE BILIRUBIN NEGATIVE (NEGATIVE); URINE BLOOD NEGATIVE (NEGATIVE); URINE GLUCOSE (UA) NEGATIVE (NEGATIVE); URINE LEUKOCYTE ESTERASE NEGATIVE Leu/uL (NEGATIVE); URINE PROTEIN NEGATIVE mg/dL (<30 mg/dL); URINE UROBILINOGEN 0.2 E.U./dL (<1 E.U./dL); WHITE BLOOD COUNT 7.8 10^3/ul (4.5-11.0)
[2018-02-15 10:20] LABS: URINE APPEARANCE CLEAR (CLEAR); URINE COLOR YELLOW (YELLOW)
[2018-02-15 10:29] LABS: ALB/GLOB RATIO 1.5 (1.1-1.8); ALBUMIN 4.4 g/dL (3.0-4.8); ALT/SGPT 40 U/L (7-56); AST/SGOT 31 U/L (17-59); BLOOD UREA NITROGEN 11 mg/dL (7-21); CALCIUM 9.7 mg/dL (8.4-10.5); GFR AFRICAN-AMERICAN > 60; GFR NON-AFRICAN AMERICAN > 60
[2018-02-15 10:31] LABS: PARTIAL THROMBOPLASTIN TIME 34.4 Seconds (25.1-36.5); PROTHROMBIN TIME 11.5 SECONDS (9.4-12.5)
--- NOTE | 2018-02-15 11:15 | MRI ---
PROCEDURE: MR LUMBAR SPINE WITHOUT CONTRAST HISTORY: low back pain COMPARISON: None available. TECHNIQUE: Multiecho multiplanar sequences were performed through the lumbar spine without the use of intravenous contrast. FINDINGS: Normal lumbar lordosis. Vertebral body heights are preserved. Marrow signal unremarkable. Conus medullaris unremarkable at the level of T12 Paraspinal soft tissues are unremarkable. T12-L1: No disc herniation, spinal canal stenosis or neural foraminal narrowing. L1-2: Disc degeneration and disc bulging without stenosis L2-3: Mild disc degeneration without stenosis L3-4: No disc herniation, spinal canal stenosis or neural foraminal narrowing. L4-5: No disc herniation, spinal canal stenosis or neural foraminal narrowing. L5-S1: There is spondylolysis and spondylolisthesis at this level. There is 10 mm of anterior subluxation. There is disc degeneration and disc bulging with severe bilateral foraminal stenosis. There is no central stenosis OTHER FINDINGS: None. IMPRESSION: L5-S1 spondylolisthesis with severe foraminal stenosis. See comments
[2018-02-15 13:19] VITALS: BP 105/67; PULSE 56; O2SAT 96
== END 2018-02-15 13:19 | disposition home or self-care (01) ==
LOC: ED 08:02
DX: M43.17 Spondylolisthesis, lumbosacral region (principal); Z87.891 Personal history of nicotine dependence
CPT/HCPCS: 72148; 80053; 81003; 85025; 85610; 85730; 96372; 99284; J1885

== ENCOUNTER 2018-04-12 10:56 | Emergency (ER) | payer OTHER ==
[2018-04-12 10:57] VITALS: BMI 21.1
[2018-04-12 11:27] VITALS: TEMP 98.8
[2018-04-12] MEDS ORDERED: TDAP Vaccine 0.5 mL Syr IM ONE (11:30)
--- NOTE | 2018-04-12 11:36 | ED PDOC ---
Arrival/HPI - General Chief Complaint: Abnormal Skin Integrity Time Seen by Provider: 04/12/18 11:11 Historian: Patient - History of Present Illness Narrative History of Present Illness (Text): 04/12/18 11:32 48yr old male presents today with laceration to the right cheek. pt states the metal bracket to the ceiling tiles fell hitting him in the right cheek. pt c/o 4 /10 pain to the laceration site. pt is unsure of last tetanus shot. incident occurred prior to arrival. no LOC. no headaches, dizziness weakness. no other complaints. Time/Duration: Prior to Arrival Symptom Onset: Sudden Symptom Course: Improving Past Medical History - Provider Review Nursing Documentation Reviewed: Yes - Travel History Have you recently traveled outside [place] w/in the past 3 mons?: No - Past History Past History: No Previous - Infectious Disease Hx of Infectious Diseases: None - Tetanus Immunization Tetanus Immunization: Up to Date - Past Medical History Past Medical History: Unable to Obtain - Cardiac Hx Cardiac Disorders: No - Pulmonary Hx Respiratory Disorders: No - Neurological Hx Neurological Disorder: No - HEENT Hx HEENT Disorder: No - Renal Hx Renal Disorder: No - Endocrine/Metabolic Hx Endocrine Disorders: No - Hematological/Oncological Hx Blood Transfusions: No - Integumentary Hx Dermatological Disorder: Yes Other/Comment: hx snake bite - Musculoskeletal/Rheumatological Hx Musculoskeletal Disorders: No - Gastrointestinal Hx Gastrointestinal Disorders: Yes Hx Gastroesophageal Reflux: Yes - Genitourinary/Gynecological Hx Genitourinary Disorders: No - Psychiatric Hx Psychophysiologic Disorder: Yes Hx Substance Use: Yes (marijuana) Other/Comment: suicidal ideation and attempt/drug overdose w/etoh use and cut wrists - Past Surgical History Past Surgical History: No Previous - Surgical History Hx Appendectomy: Yes - Anesthesia Hx Anesthesia Reactions: No Hx Malignant Hyperthermia: No - Suicidal Assessment Feels Threatened In Home Enviroment: No Family/Social History - Physician Review Nursing Documentation Reviewed: Yes Family/Social History: Unknown Family HX Smoking Status: Former Smoker Hx Alcohol Use: Yes (quit 8 months ago) Hx Substance Use: Yes (marijuana) Hx Substance Use Treatment: No Allergies/Home Meds Allergies/Adverse Reactions: Allergies No Known Allergies Allergy (Verified 04/12/18 11:26) Review of Systems - Review of Systems Constitutional: absent: Fatigue, Fevers Eyes: absent: Vision Changes, Photophobia, Eye Pain ENT: absent: Sore Throat, Sinus Congestion Respiratory: absent: SOB, Cough Cardiovascular: absent: Chest Pain, Palpitations Gastrointestinal: absent: Abdominal Pain, Diarrhea, Vomiting Skin: Laceration. absent: Pruritis Neurological: absent: Headache, Dizziness Physical Exam Vital Signs Reviewed: Yes Vital Signs Temp Pulse Resp BP Pulse Ox 04/12/18 12:09 97 04/12/18 12:08 80 17 115/78 97 04/12/18 11:26 98.8 F 82 18 113/83 96 Temperature: Afebrile Blood Pressure: Normal Pulse: Regular Respiratory Rate: Normal Appearance: Positive for: Well-Appearing, Non-Toxic, Comfortable Pain Distress: None Mental Status: Positive for: Alert and Oriented X 3 - Systems Exam Head: Present: Laceration (there is a 3cm linear superficial laceration noted noted to the right cheek. laceration is NOT through and through. no active bleeding; no step offs or crepitus. ). No: Tenderness (no bony tenderness, no step offs ), Contusion, Swelling, Ecchymosis Pupils: Present: PERRL Extroacular Muscles: Present: EOMI Conjunctiva: Present: Normal Mouth: Present: Moist Mucous Membranes, Normal Lips, Normal Tounge. No: Drooling, Trismus Nose (External): Present: Atraumatic Nose (Internal): Present: Normal Inspection Neck: Present: Normal Range of Motion, Trachea Midline. No: MIDLINE TENDERNESS Respiratory/Chest: Present: Clear to Auscultation, Good Air Exchange. No: Respiratory Distress, Accessory Muscle Use Cardiovascular: Present: Regular Rate and Rhythm, Normal S1, S2. No: Murmurs Upper Extremity: Present: Normal ROM Lower Extremity: Present: Normal ROM Neurological: Present: GCS=15 Skin: Present: Warm, Dry, Normal Color Psychiatric: Present: Alert, Oriented x 3 Medical Decision Making ED Course and Treatment: 04/12/18 11:36 Patient is nontoxic well appearing in no distress. Vital signs are stable. Wound irrigated well with high pressure irrigation Tetanus updated pt refused medications for pain. Laceration repair: dermabond applied. Patient was advised to keep the wound clean and dry.Advised to return immediately if signs of infection develop or return if any other concerning symptoms develop Patient verbalizes understanding of discharge instructions and need for immediate followup. all aspects of this case were discussed the attending of record. Impression: Laceration, facial Motrin every 6 hours as needed for pain Keflex: 1 capsule 4 times daily x 5 days. Keep the wound clean and dry Return immediately if signs of infection develop: High fevers, increasing pain, redness, swelling, purulent discharge Follow up with the Plastic surgeon] within the next 2 days. Followup with primary care physician within the next 2 days Return if any other concerning symptoms develop - Medication Orders Current Medication Orders: Discontinued Medications Tetanus/Reduced Diphtheria/Acell Pertussis (Boostrix Vaccine Inj) 0.5 ml IM .ONCE ONE Stop: 04/12/18 11:31 Last Admin: 04/12/18 12:07 Dose: 0.5 ml Immunization Registry Document 04/12/18 12:07 SF (Rec: 04/12/18 12:07 [id number]) Immunization Registry Consent Date 02/15/18 Procedure: Wound Repair - Procedure Procedure: Wound Repair: laceration, right cheek - Performed by Performed by: Mid-level Provider - Indications Indication(s):: Laceration - Location Shape:: Linear Dimensions Length cm: 3cm Depth:: Epidermis - Debris Debris:: None - Irrigated Irrigated with ml of normal saline: copious amounts of NS using high pressure irrigation - Wound repair method Dre:: Tissue glue - Complications Complications: none - Patient tolerated procedure Patient Tolerated Procedure:: Well Disposition/Present on Arrival - Present on Arrival Any Indicators Present on Arrival: No History of DVT/PE: No History of Uncontrolled Diabetes: No Urinary Catheter: No History of Decub. Ulcer: No History Surgical Site Infection Following: None - Disposition Have Diagnosis and Disposition been Completed?: Yes Diagnosis: Laceration of face Disposition: HOME/ ROUTINE Disposition Time: 11:37 Patient Plan: Discharge Condition: GOOD Discharge Instructions (ExitCare): Laceration Repair With Glue (DC) Additional Instructions: Motrin every 6 hours as needed for pain Keflex: 1 capsule 4 times daily x 5 days. Keep the wound clean and dry Return immediately if signs of infection develop: High fevers, increasing pain, redness, swelling, purulent discharge Follow up with the Plastic surgeon] within the next 2 days. Followup with primary care physician within the next 2 days Return if any other concerning symptoms develop Prescriptions: Cephalexin [Keflex] 500 mg PO QID #20 capsule Referrals: Cesar Brewer MD [Staff Provider] - Follow up with primary MichaelCan MD [Staff Provider] - Follow up with primary Forms: [employer] (Somali), WORK NOTE
[2018-04-12 12:09] VITALS: BP 115/78; PULSE 80; RESP 17; O2SAT 97
== END 2018-04-12 12:09 | disposition home or self-care (01) ==
LOC: ED 10:56
DX: S01.411A Laceration without foreign body of right cheek and temporomandibular area, initial encounter (principal); W20.8XXA Other cause of strike by thrown, projected or falling object, initial encounter; Z87.891 Personal history of nicotine dependence; Z23 Encounter for immunization

== ENCOUNTER 2018-04-18 08:55 | Inpatient (IN) | payer OTHER ==
[2018-04-18 09:05] VITALS: BMI 21.9
[2018-04-18] MEDS ORDERED: Morphine 2 mg/ml ISec IVP STA (09:27)
[2018-04-18] MEDS ORDERED: Pantoprazole 40mg/100mL NS 40 MG/100 ML BAG IVPB SCH (09:30)
[2018-04-18 09:43] LABS: BASO # 0.01 K/mm3 (0.0-2.0); BASO % 0.1 % (0.0-3.0); EOS # 0.1 (0.0-0.7); GRAN # 12.07 (1.4-6.5); GRAN % 82.9 % (50.0-68.0); HEMOGLOBIN 14.2 g/dL (14.0-18.0); LYMPH # 1.6 (1.2-3.4); MEAN CELL VOLUME 91.3 fl (80.0-105.0); MEAN CORPUSCULAR HEMOGLOBIN 31.6 pg (25.0-35.0); MEAN CORPUSCULAR HGB CONC 34.6 g/dl (31.0-37.0); MEAN PLATELET VOLUME 9.8 fl (7.0-11.0); MONO # 0.7 (0.1-0.6); RBC 4.49 10^6/uL (3.5-6.1); RED CELL DISTRIBUTION WIDTH 13.2 % (11.5-14.5); WHITE BLOOD COUNT 14.6 10^3/ul (4.5-11.0)
[2018-04-18 09:54] LABS: ALB/GLOB RATIO 1.7 (1.1-1.8); ALBUMIN 4.7 g/dL (3.0-4.8); ALT/SGPT 37 U/L (7-56); AST/SGOT 34 U/L (17-59); BLOOD UREA NITROGEN 17 mg/dL (7-21); CALCIUM 9.5 mg/dL (8.4-10.5); GFR AFRICAN-AMERICAN > 60; GFR NON-AFRICAN AMERICAN > 60; LIPASE 67 U/L (23-300)
[2018-04-18] MEDS ORDERED: Iohexol 350 MG/100 ML VIAL ONE (10:03)
[2018-04-18 10:05] LABS: TROPONIN I < 0.01 ng/mL
[2018-04-18 10:14] LABS: INR 0.91 (0.93-1.08); PARTIAL THROMBOPLASTIN TIME 29.2 Seconds (25.1-36.5); PROTHROMBIN TIME 10.5 SECONDS (9.4-12.5)
--- NOTE | 2018-04-18 10:29 | ED PDOC ---
Arrival/HPI - General Historian: Patient - General Chief Complaint: GI Problem Time Seen by Provider: 04/18/18 08:58 - History of Present Illness Narrative History of Present Illness (Text): 04/18/18 11:16 This is a 48 yo M with PMH of GERD, extensive GI ulcer disease (gastric, duodenal, and esophageal), chronic back pain, and medication non-compliance who presents with complaint of frequent uncontrolled emesis and now hematemesis since 4am today. Reports awoke to vomiting, mostly clear vomitus, but after 2nd hour of non-stop vomiting, started having severe abdominal pain and began vomiting dark blood. Semmes at bedside during exam shows copious clear discharge with scattered dark red blood. Patient's primary complaint is abdominal pain, repeatedly asking for something for the pain throughout exam. Denies any prior episode of hematemesis like this, denies melena. Reports not taking his Protonix due to switching to Vegan diet for last 7 months, which he felt was taking care of his GI ulcer disease. Pt unable to state when he last followed up with GI. HPI and ROS limited as patient keeps reverting to asking for pain medications after each question, won't be reoriented. PMH: as above PSH: Appendectomy Fam Hx: denies Soc Hx: 30 year pack history of smoking. Former drinker. Former recreational cocaine abuser. Still intermittently using marijuana. Denies other illicit drug usage. PMD: Dr. Tomlin ([facility]) Past Medical History - Provider Review Nursing Documentation Reviewed: Yes - Past History Past History: No Previous - Infectious Disease Hx of Infectious Diseases: None - Tetanus Immunization Tetanus Immunization: Up to Date - Past Medical History Past Medical History: Unable to Obtain - Cardiac Hx Cardiac Disorders: No - Pulmonary Hx Respiratory Disorders: No - Neurological Hx Neurological Disorder: No - HEENT Hx HEENT Disorder: No - Renal Hx Renal Disorder: No - Endocrine/Metabolic Hx Endocrine Disorders: No - Hematological/Oncological Hx Blood Transfusions: No - Integumentary Hx Dermatological Disorder: Yes Other/Comment: hx snake bite - Musculoskeletal/Rheumatological Hx Musculoskeletal Disorders: No - Gastrointestinal Hx Gastrointestinal Disorders: Yes Hx Gastroesophageal Reflux: Yes - Genitourinary/Gynecological Hx Genitourinary Disorders: No - Psychiatric Hx Psychophysiologic Disorder: Yes Hx Substance Use: Yes (marijuana) Other/Comment: suicidal ideation and attempt/drug overdose w/etoh use and cut wrists - Past Surgical History Past Surgical History: No Previous - Surgical History Hx Appendectomy: Yes - Anesthesia Hx Anesthesia Reactions: No Hx Malignant Hyperthermia: No - Suicidal Assessment Feels Threatened In Home Enviroment: No Family/Social History - Physician Review Nursing Documentation Reviewed: Yes Family/Social History: No Known Family HX Smoking Status: Former Smoker Hx Alcohol Use: Yes (Hx of ETOH abuse) Hx Substance Use: Yes (marijuana) Hx Substance Use Treatment: No Allergies/Home Meds Allergies/Adverse Reactions: Allergies No Known Allergies Allergy (Verified 04/18/18 09:08) Home Medications: Home Meds Medication Instructions Recorded Confirmed No Known Home Med 04/18/18 04/18/18 Review of Systems - Physician Review All systems were reviewed & negative as marked: Yes (as per HPI) - Review of Systems Systems not reviewed;Unavailable: Other (patient primarily focused on pain, only answering so many questions before solely focusing on pain) Constitutional: absent: Fevers Eyes: absent: Vision Changes ENT: Sore Throat. absent: Rhinorrhea, Epistaxis, Sinus Congestion Respiratory: absent: SOB Cardiovascular: Chest Pain (midline chest pain with vomiting). absent: Palpitations, TIMMONS, Syncope Gastrointestinal: Abdominal Pain, Nausea, Vomiting, Hematemesis. absent: Constipation, Diarrhea Genitourinary Male: Normal. absent: Dysuria, Frequency, Hematuria Musculoskeletal: Back Pain (chronic) Skin: Normal. absent: Rash, Pruritis Neurological: Normal. absent: Headache, Dizziness Endocrine: Normal. absent: Diaphoresis Physical Exam Vital Signs Reviewed: Yes Temperature: Afebrile Blood Pressure: Normal Pulse: Regular Respiratory Rate: Normal Appearance: Positive for: Ill-Appearing, Unkept, Uncomfortable, Other (acute distress 2/2 repeated retching with bloody production). No: Well-Appearing Pain Distress: Severe Mental Status: Positive for: Alert and Oriented X 3 - Systems Exam Head: Present: Atraumatic, Normocephalic Pupils: No: Pinpoint Extroacular Muscles: Present: EOMI Conjunctiva: Present: Normal. No: Injected, Icteric Mouth: Present: Moist Mucous Membranes, Normal Tounge, Normal Teeth. No: Dry, Drooling Nose (External): Present: Atraumatic. No: Abrasion, Laceration Nose (Internal): Present: No Active Bleeding. No: Epistaxis Neck: Present: Normal Range of Motion, Trachea Midline. No: MIDLINE TENDERNESS , JVD Respiratory/Chest: Present: Clear to Auscultation, Good Air Exchange, Tachypneic (after retching episodes). No: Respiratory Distress, Accessory Muscle Use, Wheezes, Rales, Rhonchi Cardiovascular: Present: Regular Rate and Rhythm, Normal S1, S2, Peripheal Pulses Present (+2 radials bilaterally). No: Murmurs, Irregular Rhythm, Tachycardic, Bradycardic Abdomen: Present: Tenderness, Normal Bowel Sounds, Other (patient retching throughout exam, bringing up small amounts of clear mucous with dark blood mixed in, no projectile emesis). No: Distention Back: Present: Normal Inspection Upper Extremity: Present: Normal Inspection, Normal ROM, NORMAL PULSES. No: Cyanosis, Edema, Tenderness, Swelling, Erythema, Deformity Lower Extremity: Present: Normal Inspection, Normal ROM. No: CALF TENDERNESS, Cyanosis, Tenderness, Swelling, Erythema, Deformity Neurological: Present: GCS=15, Speech Normal, Gait Normal Skin: Present: Warm, Dry, Normal Color. No: Rashes Lymphatic: Present: Cervical Adenopathy Psychiatric: Present: Alert, Oriented x 3, Normal Insight, Normal Concentration , Anxious, Agitated Vital Signs Temp Pulse Resp BP Pulse Ox 04/18/18 13:00 78 18 135/79 98 04/18/18 11:00 72 18 138/79 98 04/18/18 09:52 61 20 141/72 99 04/18/18 09:03 98.7 F 71 18 99 Medical Decision Making ED Course and Treatment: 04/18/18 10:23 Ddx: upper GI bleed, concern for Adrianne-crowell tear in setting of recurrent emesis Protonix bolus 80mg IV x1 ordered, protonix drip ordered Zofran 8mg IVP x1 Cardiac Iso, CBC with diff, CMP, Mg, Phos, Lipase Type and Screen CT abd/pelvis with IV contrast if Cr wnl 04/18/18 12:16 Hgb stable, mild leukocytosis of 14 No nausea control with Zofran, added reglan 10mg IVP x1 with no relief, added Compazine 25mg suppository, relief obtained, went for CT [place] negative stool CT abd/pelvis negative for acute inflammatory process, notable for constipation without obstruction, diverticulosis without diverticulitis ED attending discussed case with Hospitalist military professional, Dr. Walden, who accepts for admission. Resident on service notified and will come evaluate pt. Seen, reviewed, and discussed with attending, Dr. Mccarthy ([facility]) 04/20/18 09:46 pt seen with residnet, hememesis x few days, h/o of pud. in er, pt requesitng hydromorphone for pain. in er h/h stable bun cr wnl. mild hememeiis noted. suspect khalida crowell vs pud. admitted (Og Mccarthy) - Lab Interpretations Lab Results: 04/18/18 09:00 04/18/18 09:00 Lab Results 04/18/18 09:00: Blood Type O POSITIVE, Antibody Screen Negative, BBK History Checked Patient has bt 04/18/18 09:00: Sodium 142, Potassium 4.4, Chloride 100, Carbon Dioxide 29, Anion Gap 18, BUN 17, Creatinine 0.8, Est GFR ( Amer) > 60, Est GFR (Non- Af Amer) > 60, Random Glucose 159 H, Calcium 9.5, Magnesium 1.9, Total Bilirubin 0.6, AST 34, ALT 37, Alkaline Phosphatase 91, Lactate Dehydrogenase 454, Total Creatine Kinase 127, Troponin I < 0.01, Total Protein 7.5, Albumin 4.7, Globulin 2.8, Albumin/Globulin Ratio 1.7, Lipase 67 04/18/18 09:00: PT 10.5, INR 0.91 L, APTT 29.2 04/18/18 09:00: WBC 14.6 H D, RBC 4.49, Hgb 14.2, Hct 41.0 L, MCV 91.3, MCH 31.6 , MCHC 34.6, RDW 13.2, Plt Count 319, MPV 9.8, Gran % 82.9 H, Lymph % (Auto) 11.0 L, [place] % (Auto) 5.0, Eos % (Auto) 1.0 L, Baso % (Auto) 0.1, Gran # 12.07 H , Lymph # (Auto) 1.6, [place] # (Auto) 0.7 H, Eos # (Auto) 0.1, Baso # (Auto) 0.01 - RAD Interpretation Radiology Orders: 04/18/18 09:22 CHEST PORTABLE [RAD] Stat 04/18/18 09:45 ABD & PELVIS IV CONTRAST ONLY [CT] Stat - Medication Orders Current Medication Orders: Sodium Chloride (Sodium Chloride 0.9%) 1,000 mls @ 150 mls/hr IV .Q6H40M LACI Last Admin: 04/20/18 06:51 Dose: 150 mls/hr eMAR Start Stop Document 04/20/18 06:51 SHYANN (Rec: 04/20/18 06:51 OLIVD [facility] [id number]) Intravenous Solution Start Date 04/20/18 Start Time 06:51 Morphine Sulfate (Morphine) 1 mg IVP Q4H PRN PRN Reason: Pain, severe (8-10) Last Admin: 04/20/18 08:11 Dose: 1 mg MAR Pain Assessment Document 04/20/18 08:11 SOUSV (Rec: 04/20/18 08:12 SOUSV [id number]) Pain Reassessment Is this a pain reassessment? No Presence of Pain Presence of Pain Yes Pain Scale Used Pain Scale Used Numeric Location Upper or Lower Upper Pain Location Body Site Abdomen Description Description Constant Intensity of Pain at present 10 Pain Behavior Moaning Guarding Alleviating Factors/Management Medication Techniques Alleviating Factors Medication IVP Administration Document 04/20/18 08:11 SOUSV (Rec: 04/20/18 08:12 SOUSV [id number]) Charges for Administration # of IVP Administrations 1 Ondansetron HCl (Zofran Inj) 4 mg IVP Q4H PRN PRN Reason: Nausea/Vomiting Last Admin: 04/20/18 06:49 Dose: 4 mg IVP Administration Document 04/20/18 06:49 OLIVD (Rec: 04/20/18 06:49 OLIVD [facility] [id number]) Charges for Administration # of IVP Administrations 1 Pantoprazole Sodium (Protonix Inj) 40 mg IVP Q12 [facility] Last Admin: 04/19/18 21:46 Dose: 40 mg IVP Administration Document 04/19/18 21:46 OLIVD (Rec: 04/19/18 21:46 OLIVD [facility] [id number]) Charges for Administration # of IVP Administrations 1 Discontinued Medications Pantoprazole Sodium (Protonix 40mg Ivpb) 40 mg in 100 mls @ 20 mls/hr IVPB .Q5H LACI Last Admin: 04/18/18 09:32 Dose: 20 mls/hr eMAR Start Stop Document 04/18/18 09:32 EWO (Rec: 04/18/18 09:32 EWO [id number]) Intravenous Solution Start Date 04/18/18 Start Time 09:32 Metoclopramide HCl (Reglan) 10 mg IVP STAT STA Stop: 04/18/18 09:52 Last Admin: 04/18/18 10:01 Dose: 10 mg IVP Administration Document 04/18/18 10:01 EWO (Rec: 04/18/18 10:01 EWO [id number]) Charges for Administration # of IVP Administrations 1 Metoclopramide HCl (Reglan) 10 mg IVP STAT STA Stop: 04/18/18 14:19 Last Admin: 04/18/18 14:53 Dose: 10 mg IVP Administration Document 04/18/18 14:53 MV (Rec: 04/18/18 14:53 MV [facility]) Charges for Administration # of IVP Administrations 1 Metoclopramide HCl (Reglan) 10 mg IVP STAT STA Stop: 04/20/18 08:54 Last Admin: 04/20/18 09:07 Dose: 10 mg IVP Administration Document 04/20/18 09:07 SOUMaiV (Rec: 04/20/18 09:07 SOUSV [id number]) Charges for Administration # of IVP Administrations 1 Morphine Sulfate (Morphine) 2 mg IVP STAT STA Stop: 04/18/18 09:28 Last Admin: 04/18/18 09:34 Dose: 2 mg MAR Pain Assessment Document 04/18/18 09:34 EWO (Rec: 04/18/18 09:34 EWO [id number]) Pain Reassessment Is this a pain reassessment? No IVP Administration Document 04/18/18 09:34 EWO (Rec: 04/18/18 09:34 EWO [id number]) Charges for Administration # of IVP Administrations 1 Ondansetron HCl (Zofran Inj) 8 mg IVP STAT STA Stop: 04/18/18 09:25 Last Admin: 04/18/18 09:33 Dose: Pantoprazole Sodium (Protonix Inj) 80 mg IVP STAT STA Stop: 04/18/18 09:24 Last Admin: 04/18/18 09:32 Dose: 80 mg IVP Administration Document 04/18/18 09:32 MAKAYLAOlivia (Rec: 04/18/18 09:32 MAKAYLAOlivia [id number]) Charges for Administration # of IVP Administrations 1 Prochlorperazine (Compazine Rectal Supp) 25 mg RC ONCE ONE Stop: 04/18/18 10:30 Last Admin: 04/18/18 10:41 Dose: 25 mg Disposition/Present on Arrival - Present on Arrival Any Indicators Present on Arrival: No History of DVT/PE: No History of Uncontrolled Diabetes: No Urinary Catheter: No History of Decub. Ulcer: No History Surgical Site Infection Following: None - Disposition Have Diagnosis and Disposition been Completed?: Yes Disposition Time: 12:25 Patient Plan: Admission, Telemetry - Disposition Diagnosis: Hematemesis/vomiting blood, Drug-seeking behavior Disposition: HOSPITALIZED Patient Problems: Current Active Problems Problem Status Onset Drug-seeking behavior Acute Hematemesis/vomiting blood Acute Condition: FAIR
--- NOTE | 2018-04-18 10:48 | RAD ---
HISTORY: Abdominal pain. COMPARISON: 07/16/2017 FINDINGS: LUNGS: No active pulmonary disease. PLEURA: No significant pleural effusion identified, no pneumothorax apparent. CARDIOVASCULAR: No radiographic findings to suggest acute or significant cardiovascular disease. OSSEOUS STRUCTURES: No significant abnormalities. VISUALIZED UPPER ABDOMEN: Normal. OTHER FINDINGS: None. IMPRESSION: No active disease. No significant interval change compared to the prior examination(s).
--- NOTE | 2018-04-18 11:39 | CT ---
PROCEDURE: CT Abdomen and Pelvis with contrast HISTORY: hematemesis COMPARISON: 07/16/2017. CT abdomen and pelvis TECHNIQUE: Contrast dose: 100 cc Omnipaque 350 Radiation dose: Total exam DLP = 390.63 mGy-cm. This CT exam was performed using one or more of the following dose reduction techniques: Automated exposure control, adjustment of the mA and/or kV according to patient size, and/or use of iterative reconstruction technique. FINDINGS: LOWER THORAX: Unremarkable. LIVER: Unremarkable. No gross lesion or ductal dilatation. GALLBLADDER AND BILE DUCTS: Unremarkable. PANCREAS: Unremarkable. No gross lesion or ductal dilatation. SPLEEN: Unremarkable. ADRENALS: Unremarkable. No mass. KIDNEYS AND URETERS: Bilateral nonobstructing renal calculi. Similar findings identified previously. VASCULATURE: Unremarkable. No aortic aneurysm. BOWEL: Constipation without fecal impaction or obstruction. Diverticulosis without an acute inflammatory component or other associated pathologic process. APPENDIX: Normal appendix. PERITONEUM: Unremarkable. No free fluid. No free air. LYMPH NODES: Unremarkable. No enlarged lymph nodes. BLADDER: Unremarkable. REPRODUCTIVE: Unremarkable. BONES: Healed left 11th rib fracture. Anterolisthesis, grade 1 L5-S1 with associated spondylolysis. OTHER FINDINGS: None. IMPRESSION: No acute findings related to/accounting for the clinical presentation. Additional benign and/or incidental findings described above. No significant interval change compared to the prior examination(s).
[2018-04-18] MEDS: Morphine 2 mg/ml ISec IVP PRN ×2 (13:45→20:49)
--- NOTE | 2018-04-18 14:00 | CP.PCM.HP ---
<Ruy Cee - Last Filed: 04/18/18 16:33> History of Present Illness - History of Present Illness History of Present Illness: H&P for Hospitalist Service CC: Hemetemesis HPI: 48 yo male with self reported past medical history of GERD, gastric, duodenal, and esophageal ulcers who presents to [facility] ED complaining of frequent uncontrolled hematemesis starting at 4am this morning. Patient indicates he awoke from sleep vomiting rust tinged blood emesis. Denies copious amounts of blood, bright red blood, or large clots. Denies drinking alcohol for the past one year and half. Patient reports up to 20 episodes of vomiting since onset. Reports previous episode similar to this one in June of 2017 for which he was admitted. At that time patient had an EGD preformed which was unremarkable. He was discharged on Protonix and instructed to follow up. 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 Patient reports 20 pound weight loss since onset of vegan diet. Associated symptoms include dull burning abdominal pain reported as midepigastric without radiation. Patient requesting pain medication throughout interview process. Upon entering room was noted to be resting in bed without signs of agitation. 12 point ROS is benign otherwise mentioned in HPI. ED Course: PMH: GERD, Esophageal, gastric and duodenal ulcers PSH: Appendectomy FMH: Brother - Lupus Soc Hx: Former smoker, 30 year pack history of smoking. Former drinker. Former recreational cocaine abuser. ID: [id number], denies IVDA ALL: NKDA MEDS: Denies PMD: Dr. Tomlin Present on Admission - Present on Admission Any Indicators Present on Admission: No Review of Systems - Review of Systems All systems: reviewed and no additional remarkable complaints except (as mentioned in HPI) Past Patient History - Infectious Disease Hx of Infectious Diseases: None - Tetanus Immunizations Tetanus Immunization: Up to Date - Past Medical History & Family History Past Medical History?: Yes - Past Social History Smoking Status: Former Smoker Alcohol: None Drugs: Cannabis, Cocaine (former) - CARDIAC Hx Cardiac Disorders: No - PULMONARY Hx Respiratory Disorders: No - NEUROLOGICAL Hx Neurological Disorder: No - HEENT Hx HEENT Problems: No - RENAL Hx Chronic Kidney Disease: No - ENDOCRINE/METABOLIC Hx Endocrine Disorders: No - HEMATOLOGICAL/ONCOLOGICAL Hx Blood Transfusions: No - INTEGUMENTARY Hx Dermatological Problems: Yes Other/Comment: hx snake bite - MUSCULOSKELETAL/RHEUMATOLOGICAL Hx Musculoskeletal Disorders: No - GASTROINTESTINAL Hx Gastrointestinal Disorders: Yes Hx Gastroesophageal Reflux: Yes - GENITOURINARY/GYNECOLOGICAL Hx Genitourinary Disorders: No - PSYCHIATRIC Hx Psychophysiologic Disorder: Yes Hx Substance Use: Yes (marijuana) Other/Comment: suicidal ideation and attempt/drug overdose w/etoh use and cut wrists - SURGICAL HISTORY Hx Appendectomy: Yes - ANESTHESIA Hx Anesthesia Reactions: No Hx Malignant Hyperthermia: No Meds Home Medications: Home Medication List Medication Instructions Recorded Confirmed Type Pantoprazole [Protonix] 40 mg PO DAILY #45 ect 04/21/18 Rx Allergies/Adverse Reactions: Allergies Allergy/AdvReac Type Severity Reaction Status Date / Time No Known Allergies Allergy Verified 04/18/18 09:08 Physical Exam - Constitutional Appears: Agitated - Head Exam Head Exam: ATRAUMATIC, NORMAL INSPECTION, NORMOCEPHALIC Results - Vital Signs Recent Vital Signs: Last Vital Signs Temp 98.7 F 04/18/18 09:03 Pulse 78 04/18/18 13:00 Resp 18 04/18/18 13:00 BP 135/79 04/18/18 13:00 Pulse Ox 98 04/18/18 13:00 - Labs Result Diagrams: 04/18/18 15:05 04/18/18 09:00 Labs: Laboratory Results - last 24 hr 04/18/18 04/18/18 04/18/18 09:00 09:00 09:00 WBC 14.6 H D RBC 4.49 Hgb 14.2 Hct 41.0 L MCV 91.3 MCH 31.6 MCHC 34.6 RDW 13.2 Plt Count 319 MPV 9.8 Gran % 82.9 H Lymph % (Auto) 11.0 L [place] % (Auto) 5.0 Eos % (Auto) 1.0 L Baso % (Auto) 0.1 Gran # 12.07 H Lymph # (Auto) 1.6 [place] # (Auto) 0.7 H Eos # (Auto) 0.1 Baso # (Auto) 0.01 PT 10.5 INR 0.91 L APTT 29.2 Sodium 142 Potassium 4.4 Chloride 100 Carbon Dioxide 29 Anion Gap 18 BUN 17 Creatinine 0.8 Est GFR ( Amer) > 60 Est GFR (Non-Af Amer) > 60 Random Glucose 159 H Calcium 9.5 Magnesium 1.9 Total Bilirubin 0.6 AST 34 ALT 37 Alkaline Phosphatase 91 Lactate Dehydrogenase 454 Total Creatine Kinase 127 Troponin I < 0.01 Total Protein 7.5 Albumin 4.7 Globulin 2.8 Albumin/Globulin Ratio 1.7 Lipase 67 Blood Type Antibody Screen BBK History Checked 04/18/18 09:00 WBC RBC Hgb Hct MCV MCH MCHC RDW Plt Count MPV Gran % Lymph % (Auto) [place] % (Auto) Eos % (Auto) Baso % (Auto) Gran # Lymph # (Auto) [place] # (Auto) Eos # (Auto) Baso # (Auto) PT INR APTT Sodium Potassium Chloride Carbon Dioxide Anion Gap BUN Creatinine Est GFR ( Amer) Est GFR (Non-Af Amer) Random Glucose Calcium Magnesium Total Bilirubin AST ALT Alkaline Phosphatase Lactate Dehydrogenase Total Creatine Kinase Troponin I Total Protein Albumin Globulin Albumin/Globulin Ratio Lipase Blood Type O POSITIVE Antibody Screen Negative BBK History Checked Patient has bt Assessment & Plan - Assessment and Plan (Free Text) Assessment: 48 yo male with self reported past medical history of GERD, gastric, duodenal, and esophageal ulcers who presented to [facility] ED complaining of frequent uncontrolled hematemesis starting at 4am this morning. Patient H/H is stable, VSS, no history of ETOH use. GI consulted for hemetemesis. Patient noted to be bradycardic on floor, cardiology consulted. Plan: Hemetemesis - Etiology: Adrianne mira vs. PUD vs. esophagitis - Denies ETOH use for past year and half - Previous EGD 06/2017: Unremarkable, stomach bx taken showing negative h. pylori and normal tissue - On exam emesis noted to be rica brown, no sami bright blood, Hgb 14, stable from previous - IVF 150cc/hr - NPO - Protonix IV BID 40mg - GI consulted, f/u recs - H/H Q6H, monitor Bradycardia - Junctional rhythm noted while on floor - EKG showing sinus bradycardia - Asymptomatic, HR as low as 38 while on floor - Trop negative - Cardiology consult, f/u recs - UDS - monitor overnight GI/DVT ppx - Protonix - SCDs, holding AC due to hemetemesis Case and plan discussed with attending Blanche Cee PGY-1 - Date & Time Date: 04/18/18 Time: 14:04 <Briana Walden - Last Filed: 04/26/18 13:32> Results - Vital Signs Recent Vital Signs: Last Vital Signs Temp 97.8 F 04/21/18 06:00 Pulse 50 L 04/21/18 06:00 Resp 18 04/21/18 06:00 BP 126/91 H 04/21/18 06:00 Pulse Ox 100 04/21/18 06:00 - Labs Result Diagrams: 04/21/18 06:00 04/21/18 06:00 Attending/Attestation - Attestation I have personally seen and examined this patient.: Yes I have fully participated in the care of the patient.: Yes I have reviewed all pertinent clinical information: Yes Notes (Text): 04/26/18 13:24 Medical record note made by the resident after discussion with my direction and input after the patient was personally seen and examined by me. I have reviewed the chart and agree that the record accurately reflects by personal performance of the history, physical exam, data review, and medical decision-making, in the course for the patient. I have also personally directed the plan of care. 48 yrs old male with PMH of Esophagitis, Drug abuse and non compliance with medication is admitted with nausea/Vomiting, questionable hematemesis, hemoglobin is stableat base line,we will keep patient NPO, will start on IV fluid, IV protonix. We will monitor hemoglobin and hematocrit. We will get GI consult. Management plan was discussed in detail with patient. Education was provided. 04/26/18 13:27
[2018-04-18 15:13] LABS: HEMOGLOBIN 13.5 g/dL (14.0-18.0)
--- NOTE | 2018-04-18 16:56 | CARD ---
APPROVED REPORT EKG Measurement Heart [id number] <Conclusion> Marked sinus bradycardia Abnormal ECG
--- NOTE | 2018-04-18 16:57 | CARD ---
APPROVED REPORT EKG Measurement Heart [id number] [place] [id number] <Conclusion> Marked sinus bradycardia Abnormal ECG
[2018-04-18] MEDS: Sodium Chloride 0.9% 1,000 ML IV SCH (21:49)
[2018-04-19 04:26] LABS: HEMOGLOBIN 12.4 g/dL (14.0-18.0)
[2018-04-19 06:46] LABS: PH,URINE 6.5 (4.7-8.0); URINE BILIRUBIN NEGATIVE (NEGATIVE); URINE BLOOD TRACE-INTACT (NEGATIVE); URINE GLUCOSE (UA) NEGATIVE (NEGATIVE); URINE LEUKOCYTE ESTERASE NEGATIVE Leu/uL (NEGATIVE); URINE PROTEIN NEGATIVE mg/dL (<30 mg/dL); URINE UROBILINOGEN 0.2 E.U./dL (<1 E.U./dL)
[2018-04-19 06:48] LABS: URINE APPEARANCE CLEAR (CLEAR); URINE COLOR YELLOW (YELLOW)
[2018-04-19 07:01] LABS: ALB/GLOB RATIO 1.4 (1.1-1.8); ALBUMIN 3.6 g/dL (3.0-4.8); ALT/SGPT 31 U/L (7-56); AST/SGOT 42 U/L (17-59); BLOOD UREA NITROGEN 14 mg/dL (7-21); CALCIUM 8.9 mg/dL (8.4-10.5); GFR AFRICAN-AMERICAN > 60; GFR NON-AFRICAN AMERICAN > 60
[2018-04-19 07:12] LABS: URINE BACTERIA RARE (NEG); URINE EPITHELIAL CELLS 0 - 2 /hpf (0-5)
[2018-04-19 07:18] LABS: BARBITURATES, UR NEGATIVE (NEGATIVE); BENZODIAZEPINES, UR NEGATIVE (NEGATIVE); OPIATES, UR POSITIVE (NEGATIVE); PHENCYCLIDINE, UR NEGATIVE (NEGATIVE)
[2018-04-19 07:54] LABS: BASO # 0.01 K/mm3 (0.0-2.0); BASO % 0.1 % (0.0-3.0); EOS % 0.1 % (1.5-5.0); GRAN # 10.55 (1.4-6.5); GRAN % 77.6 % (50.0-68.0); HEMOGLOBIN 12.3 g/dL (14.0-18.0); LYMPH # 2.1 (1.2-3.4); LYMPH % 15.1 % (22.0-35.0); MEAN CELL VOLUME 91.4 fl (80.0-105.0); MEAN CORPUSCULAR HEMOGLOBIN 31.1 pg (25.0-35.0); MEAN PLATELET VOLUME 10.3 fl (7.0-11.0); MONO % 7.1 % (1.0-6.0); RBC 3.96 10^6/uL (3.5-6.1); RED CELL DISTRIBUTION WIDTH 13.4 % (11.5-14.5); WHITE BLOOD COUNT 13.6 10^3/ul (4.5-11.0)
[2018-04-19] MEDS: Sodium Chloride 0.9% 1,000 ML IV SCH (10:09)
--- NOTE | 2018-04-19 12:22 | CP.PCM.PN ---
<Shahbaz Gonzalez - Last Filed: 04/19/18 13:06> Subjective - Date & Time of Evaluation Date of Evaluation: 04/19/18 Time of Evaluation: 12:17 - Subjective Subjective: Shahbaz Gonzalez D.O. PGY-1, Internal Medicine Resident, Medicine Progress Note 48 year old male admitted on 04/18 w/ CC of hematemesis and abd pain. Patient was seen and examined this morning. Denies any complaints over night; Nursing reported no acute events overnight. Pt. stated no episodes of hemetemsis since last night 8pm. Stated that abdominal pain has resolved this morning as well. Pt. Denies: BENJAMIN, Dizziness, Blurry vision, chest pain, palpitations, N/V/D/C, hematuria/ dysuria. Objective - Vital Signs/Intake and Output Vital Signs (last 24 hours): Temp Pulse Resp BP Pulse Ox 98.3 F 63 20 111/69 99 04/19/18 07:41 04/19/18 10:00 04/19/18 07:41 04/19/18 07:41 04/19/18 07:41 Intake and Output: 04/19/18 04/19/18 06:59 18:59 Intake Total 0 Balance 0 - Medications Medications: Current Medications Sodium Chloride (Sodium Chloride 0.9%) 1,000 mls @ 150 mls/hr IV .Q6H40M [facility] Last Admin: 04/19/18 10:09 Dose: 150 mls/hr Morphine Sulfate (Morphine) 1 mg IVP Q4H PRN PRN Reason: Pain, severe (8-10) Last Admin: 04/18/18 20:49 Dose: 1 mg Ondansetron HCl (Zofran Inj) 4 mg IVP Q4H PRN PRN Reason: Nausea/Vomiting Last Admin: 04/18/18 22:34 Dose: 4 mg Pantoprazole Sodium (Protonix Inj) 40 mg IVP Q12 [facility] Last Admin: 04/19/18 10:07 Dose: 40 mg - Labs Labs: 04/19/18 09:00 04/19/18 06:00 PT 10.5 SECONDS (9.4-12.5) 04/18/18 09:00 INR 0.91 (0.93-1.08) L 04/18/18 09:00 APTT 29.2 Seconds (25.1-36.5) 04/18/18 09:00 - Constitutional Appears: Well, No Acute Distress - Head Exam Head Exam: ATRAUMATIC, NORMOCEPHALIC - Eye Exam Eye Exam: Normal appearance, PERRL. absent: Scleral icterus - ENT Exam ENT Exam: Mucous Membranes Dry, Normal Oropharynx - Respiratory Exam Respiratory Exam: Clear to Ausculation Bilateral. absent: Decreased Breath Sounds, Wheezes, Respiratory Distress - Cardiovascular Exam Cardiovascular Exam: REGULAR RHYTHM, +S1, +S2. absent: Bradycardia, Murmur - GI/Abdominal Exam GI & Abdominal Exam: Soft, Normal Bowel Sounds. absent: Tenderness, Diminished Bowel Sounds - Extremities Exam Extremities Exam: absent: Pedal Edema Additional comments: 2+ DP PT BL - Back Exam Back Exam: absent: CVA tenderness (L), CVA tenderness (R) - Neurological Exam Neurological Exam: Alert, Awake, Oriented x3 - Psychiatric Exam Psychiatric exam: Normal Affect, Normal Mood - Skin Skin Exam: Dry, Warm. absent: Petechiae Assessment and Plan - Assessment and Plan (Free Text) Assessment: 48 yo male with self reported past medical history of GERD, gastric, duodenal, and esophageal ulcers who presented to [facility] ED complaining of frequent uncontrolled hematemesis starting at 4am this morning. Patient H/H trending downward, however pt. asymptomatic, and VSS. Patient noted to be bradycardic on floor, cardiology consulted. GI consulted and reccs EGD tomorrow AM. Plan: Hemetemesis Possible Etiologies include: Adrianne crowell vs. PUD vs. esophagitis Denies ETOH use for past year and half Previous EGD 06/2017: Unremarkable, stomach bx taken showing negative h. pylori and normal tissue Pt. reports overall clinical improvement at this time. No episodes of hemetemesis reported; Abdominal pain minimal; has not required morphine PRN since 04/[address] Reynoso to take patient for EGD tomorrow AM IVF 150cc/hr NPO Protonix IV BID 40mg H/H Q6H, monitor Anemia HCT initially 41.0 on admission trended down to 36.2 at 0600 this AM; up to 37.5 at 0900 later this AM. 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 Shahbaz Gonzalez PGY-1 <Naida Hammond - Last Filed: 04/19/18 13:31> Objective - Vital Signs/Intake and Output Vital Signs (last 24 hours): Temp Pulse Resp BP Pulse Ox 98.3 F 63 20 111/69 99 04/19/18 07:41 04/19/18 10:00 04/19/18 07:41 04/19/18 07:41 04/19/18 07:41 Intake and Output: 04/19/18 04/19/18 06:59 18:59 Intake Total 0 Balance 0 - Medications Medications: Current Medications Sodium Chloride (Sodium Chloride 0.9%) 1,000 mls @ 150 mls/hr IV .Q6H40M [facility] Last Admin: 04/19/18 10:09 Dose: 150 mls/hr Morphine Sulfate (Morphine) 1 mg IVP Q4H PRN PRN Reason: Pain, severe (8-10) Last Admin: 04/18/18 20:49 Dose: 1 mg Ondansetron HCl (Zofran Inj) 4 mg IVP Q4H PRN PRN Reason: Nausea/Vomiting Last Admin: 04/18/18 22:34 Dose: 4 mg Pantoprazole Sodium (Protonix Inj) 40 mg IVP Q12 [facility] Last Admin: 04/19/18 10:07 Dose: 40 mg - Labs Labs: 04/19/18 09:00 04/19/18 06:00 PT 10.5 SECONDS (9.4-12.5) 04/18/18 09:00 INR 0.91 (0.93-1.08) L 04/18/18 09:00 APTT 29.2 Seconds (25.1-36.5) 04/18/18 09:00 Attending/Attestation - Attestation I have personally seen and examined this patient.: Yes I have fully participated in the care of the patient.: Yes I have reviewed all pertinent clinical information, including history, physical exam and plan: Yes Notes (Text): 04/19/18 13:29 48 year old male wiht past medical history of GERD, PUD and substance abuse who presented with complaint of hematemesis. He is NPO on iv fluids and iv protonix. CT abd/pelvis was reviewed. GI is following and plan is for possible EGD tomorrow. Cardiology evaluation was requested for bradycardia. TSH is ordered. He was counselled on risks of continued substance abuse. UTox was positive for opiates, cocaine and cannabinoids although patient denies recent use of. Naida Hammond MD Hospitalist.
[2018-04-19 13:28] LABS: BASO # 0.01 K/mm3 (0.0-2.0); BASO % 0.1 % (0.0-3.0); EOS # 0.1 (0.0-0.7); EOS % 0.5 % (1.5-5.0); GRAN # 8.52 (1.4-6.5); GRAN % 71.5 % (50.0-68.0); HEMOGLOBIN 11.5 g/dL (14.0-18.0); LYMPH # 2.6 (1.2-3.4); LYMPH % 21.5 % (22.0-35.0); MEAN CORPUSCULAR HEMOGLOBIN 30.7 pg (25.0-35.0); MEAN CORPUSCULAR HGB CONC 33.4 g/dl (31.0-37.0); MEAN PLATELET VOLUME 9.9 fl (7.0-11.0); MONO # 0.8 (0.1-0.6); MONO % 6.4 % (1.0-6.0); RBC 3.74 10^6/uL (3.5-6.1); RED CELL DISTRIBUTION WIDTH 13.4 % (11.5-14.5); WHITE BLOOD COUNT 11.9 10^3/ul (4.5-11.0)
[2018-04-19 13:39] LABS: ALB/GLOB RATIO 1.4 (1.1-1.8); ALBUMIN 3.3 g/dL (3.0-4.8); ALT/SGPT 31 U/L (7-56); AST/SGOT 23 U/L (17-59); BLOOD UREA NITROGEN 14 mg/dL (7-21); CALCIUM 8.6 mg/dL (8.4-10.5); GFR AFRICAN-AMERICAN > 60; GFR NON-AFRICAN AMERICAN > 60
--- NOTE | 2018-04-19 16:14 | CP.PCM.CON ---
<Heraclio Camarillo - Last Filed: 04/19/18 16:08> History of Present Illness - History of Present Illness History of Present Illness: This is a 48 yo M with PMH of GERD, extensive GI ulcer disease (gastric, duodenal, and esophageal), chronic back pain, and medication non-compliance who presents with complaint of frequent uncontrolled emesis yesterday AM, resulting in hematemesis, concerning for possible Adrianne-crowell tear. Reports awoke to vomiting, mostly clear vomitus, but after 2nd hour of non-stop vomiting, started having severe abdominal pain and began vomiting dark blood. Paron at bedside in the ED showed copious clear discharge with scattered dark red blood. Patient reports only clear to mildly bilious emesis overnight, no further hematemesis since. Reports abd pain and nausea with improved control currently. Remains NPO, on IVF for adequate hydration. Hgb decreased since admission, but not severely, more likely hemoconcentrated from emesis with decrease 2/2 rehydration. Denies chest pain, shortness of breath, diarrhea, constipation, melena, generalized weakness, room spinning, syncope/near- syncope. Stool guiac in ED negative. All other ROS in 12-system review negative. PMH: as above PSH: Appendectomy Fam Hx: denies Soc Hx: 30 year pack history of smoking. Former drinker. Former recreational cocaine abuser. Still intermittently using marijuana. Denies other illicit drug usage. PMD: Dr. Tomlin Review of Systems - Review of Systems All systems: reviewed and no additional remarkable complaints except (as per HPI ) Past Patient History - Infectious Disease Hx of Infectious Diseases: None - Tetanus Immunizations Tetanus Immunization: Up to Date - Past Medical History & Family History Past Medical History?: Yes - Past Social History Smoking Status: Former Smoker Alcohol: None Drugs: Cannabis, Cocaine (former) - CARDIAC Hx Cardiac Disorders: No - PULMONARY Hx Respiratory Disorders: No - NEUROLOGICAL Hx Neurological Disorder: No - HEENT Hx HEENT Problems: No - RENAL Hx Chronic Kidney Disease: No - ENDOCRINE/METABOLIC Hx Endocrine Disorders: No - HEMATOLOGICAL/ONCOLOGICAL Hx Blood Transfusions: No - INTEGUMENTARY Hx Dermatological Problems: Yes Other/Comment: hx snake bite - MUSCULOSKELETAL/RHEUMATOLOGICAL Hx Musculoskeletal Disorders: No - GASTROINTESTINAL Hx Gastrointestinal Disorders: Yes Hx Gastroesophageal Reflux: Yes - GENITOURINARY/GYNECOLOGICAL Hx Genitourinary Disorders: No - PSYCHIATRIC Hx Psychophysiologic Disorder: Yes Hx Substance Use: Yes (marijuana) Other/Comment: suicidal ideation and attempt/drug overdose w/etoh use and cut wrists - SURGICAL HISTORY Hx Appendectomy: Yes - ANESTHESIA Hx Anesthesia Reactions: No Hx Malignant Hyperthermia: No Meds Allergies/Adverse Reactions: Allergies Allergy/AdvReac Type Severity Reaction Status Date / Time No Known Allergies Allergy Verified 04/18/18 09:08 - Medications Medications: Current Medications Sodium Chloride (Sodium Chloride 0.9%) 1,000 mls @ 150 mls/hr IV .Q6H40M [facility] Last Admin: 04/19/18 10:09 Dose: 150 mls/hr Morphine Sulfate (Morphine) 1 mg IVP Q4H PRN PRN Reason: Pain, severe (8-10) Last Admin: 04/18/18 20:49 Dose: 1 mg Ondansetron HCl (Zofran Inj) 4 mg IVP Q4H PRN PRN Reason: Nausea/Vomiting Last Admin: 04/18/18 22:34 Dose: 4 mg Pantoprazole Sodium (Protonix Inj) 40 mg IVP Q12 [facility] Last Admin: 04/19/18 10:07 Dose: 40 mg Physical Exam - Constitutional Appears: Non-toxic, No Acute Distress, Chronically Ill - Head Exam Head Exam: ATRAUMATIC, NORMAL INSPECTION, NORMOCEPHALIC - Eye Exam Eye Exam: EOMI, Normal appearance. absent: Conjunctival injection, Scleral icterus Pupil Exam: absent: Fixed, Irregular - ENT Exam ENT Exam: Mucous Membranes Moist - Neck Exam Neck exam: Positive for: Full Rom, Normal Inspection - Respiratory Exam Respiratory Exam: Clear to Auscultation Bilateral, NORMAL BREATHING PATTERN. absent: Accessory Muscle Use, Chest Wall Tenderness, Decreased Breath Sounds, Rales, Rhonchi, Wheezes, Respiratory Distress - Cardiovascular Exam Cardiovascular Exam: REGULAR RHYTHM, RRR, +S1, +S2. absent: Bradycardia, Tachycardia, Irregular Rhythm, JVD, +S4 - GI/Abdominal Exam GI & Abdominal Exam: Normal Bowel Sounds, Soft. absent: Diminished Bowel Sounds , Distended, Firm, Guarding, Hyperactive Bowel Sounds, Hypoactive Bowel Sounds, Rigid, Tenderness - Extremities Exam Extremities exam: Positive for: full ROM, normal capillary refill, normal inspection, pedal pulses present. Negative for: calf tenderness, joint swelling , pedal edema, tenderness - Neurological Exam Neurological exam: Alert, Oriented x3 Additional comments: awake and alert, following all commands appropriately, moving all extremities spontaneously - Psychiatric Exam Psychiatric exam: Normal Affect, Normal Mood - Skin Skin Exam: Dry, Intact, Normal Color, Warm Results - Vital Signs Recent Vital Signs: Last Vital Signs Temp 98.3 F 04/19/18 07:41 Pulse 48 L 04/19/18 14:00 Resp 20 04/19/18 07:41 BP 111/69 04/19/18 07:41 Pulse Ox 99 04/19/18 10:00 - Labs Result Diagrams: 04/19/18 13:20 04/19/18 13:20 Labs: Laboratory Results - last 24 hr 04/18/18 04/19/18 04/19/18 21:12 03:00 06:00 WBC RBC Hgb 13.0 L 12.4 L Hct 37.7 L 36.3 L MCV MCH MCHC RDW Plt Count MPV Gran % Lymph % (Auto) [place] % (Auto) Eos % (Auto) Baso % (Auto) Gran # Lymph # (Auto) [place] # (Auto) Eos # (Auto) Baso # (Auto) Sodium Potassium Chloride Carbon Dioxide Anion Gap BUN Creatinine Est GFR ( Amer) Est GFR (Non-Af Amer) Random Glucose Calcium Total Bilirubin AST ALT Alkaline Phosphatase Total Protein Albumin Globulin Albumin/Globulin Ratio TSH 3rd Generation Urine Color Yellow Urine Appearance Clear Urine pH 6.5 Ur Specific [place] 1.020 Urine Protein Negative Urine Glucose (UA) Negative Urine Ketones Negative Urine Blood Trace-intact H Urine Nitrate Negative Urine Bilirubin Negative Urine Urobilinogen 0.2 Ur Leukocyte Esterase Negative Urine RBC 1 - 3 Urine WBC 1 - 3 Ur Epithelial Cells 0 - 2 Urine Bacteria Rare Urine Opiates Screen Urine Methadone Screen Ur Barbiturates Screen Ur Phencyclidine Scrn Ur Amphetamines Screen U Benzodiazepines Scrn U Oth Cocaine Metabols U Cannabinoids Screen 04/19/18 04/19/18 04/19/18 06:00 06:00 06:00 WBC 13.6 H RBC 3.96 Hgb 12.3 L Hct 36.2 L MCV 91.4 MCH 31.1 MCHC 34.0 RDW 13.4 Plt Count 262 MPV 10.3 Gran % 77.6 H Lymph % (Auto) 15.1 L [place] % (Auto) 7.1 H Eos % (Auto) 0.1 L Baso % (Auto) 0.1 Gran # 10.55 H Lymph # (Auto) 2.1 [place] # (Auto) 1.0 H Eos # (Auto) 0.0 Baso # (Auto) 0.01 Sodium 142 Potassium 4.2 Chloride 105 Carbon Dioxide 30 Anion Gap 12 BUN 14 Creatinine 0.8 Est GFR ( Amer) > 60 Est GFR (Non-Af Amer) > 60 Random Glucose 108 Calcium 8.9 Total Bilirubin 0.7 AST 42 ALT 31 Alkaline Phosphatase 53 Total Protein 6.3 Albumin 3.6 Globulin 2.7 Albumin/Globulin Ratio 1.4 TSH 3rd Generation Urine Color Urine Appearance Urine pH Ur Specific [place] Urine Protein Urine Glucose (UA) Urine Ketones Urine Blood Urine Nitrate Urine Bilirubin Urine Urobilinogen Ur Leukocyte Esterase Urine RBC Urine WBC Ur Epithelial Cells Urine Bacteria Urine Opiates Screen Positive H Urine Methadone Screen Negative Ur Barbiturates Screen Negative Ur Phencyclidine Scrn Negative Ur Amphetamines Screen Negative U Benzodiazepines Scrn Negative U Oth Cocaine Metabols Positive H U Cannabinoids Screen Positive H 04/19/18 04/19/18 04/19/18 09:00 13:20 13:20 WBC 11.9 H RBC 3.74 Hgb 11.5 L Hct 37.5 L 34.4 L MCV 92.0 MCH 30.7 MCHC 33.4 RDW 13.4 Plt Count 229 MPV 9.9 Gran % 71.5 H Lymph % (Auto) 21.5 L [place] % (Auto) 6.4 H Eos % (Auto) 0.5 L Baso % (Auto) 0.1 Gran # 8.52 H Lymph # (Auto) 2.6 [place] # (Auto) 0.8 H Eos # (Auto) 0.1 Baso # (Auto) 0.01 Sodium 139 Potassium 4.1 Chloride 107 Carbon Dioxide 28 Anion Gap 8 L BUN 14 Creatinine 0.7 L Est GFR ( Amer) > 60 Est GFR (Non-Af Amer) > 60 Random Glucose 92 Calcium 8.6 Total Bilirubin 0.6 AST 23 ALT 31 Alkaline Phosphatase 48 Total Protein 5.7 L Albumin 3.3 Globulin 2.4 Albumin/Globulin Ratio 1.4 TSH 3rd Generation Urine Color Urine Appearance Urine pH Ur Specific [place] Urine Protein Urine Glucose (UA) Urine Ketones Urine Blood Urine Nitrate Urine Bilirubin Urine Urobilinogen Ur Leukocyte Esterase Urine RBC Urine WBC Ur Epithelial Cells Urine Bacteria Urine Opiates Screen Urine Methadone Screen Ur Barbiturates Screen Ur Phencyclidine Scrn Ur Amphetamines Screen U Benzodiazepines Scrn U Oth Cocaine Metabols U Cannabinoids Screen 04/19/18 13:20 WBC RBC Hgb Hct MCV MCH MCHC RDW Plt Count MPV Gran % Lymph % (Auto) [place] % (Auto) Eos % (Auto) Baso % (Auto) Gran # Lymph # (Auto) [place] # (Auto) Eos # (Auto) Baso # (Auto) Sodium Potassium Chloride Carbon Dioxide Anion Gap BUN Creatinine Est GFR ( Amer) Est GFR (Non-Af Amer) Random Glucose Calcium Total Bilirubin AST ALT Alkaline Phosphatase Total Protein Albumin Globulin Albumin/Globulin Ratio TSH 3rd Generation 0.39 L Urine Color Urine Appearance Urine pH Ur Specific [place] Urine Protein Urine Glucose (UA) Urine Ketones Urine Blood Urine Nitrate Urine Bilirubin Urine Urobilinogen Ur Leukocyte Esterase Urine RBC Urine WBC Ur Epithelial Cells Urine Bacteria Urine Opiates Screen Urine Methadone Screen Ur Barbiturates Screen Ur Phencyclidine Scrn Ur Amphetamines Screen U Benzodiazepines Scrn U Oth Cocaine Metabols U Cannabinoids Screen Assessment & Plan - Assessment and Plan (Free Text) Assessment: This is a 48 yo M with PMH of GERD, extensive GI ulcer disease (gastric, duodenal, and esophageal), chronic back pain, and medication non-compliance who presents with complaint of frequent uncontrolled emesis and then hematemesis beginning yesterday AM, concerning for Adrianne-Crowell tear. No hematemesis today , NPO on IVF, pending EGD tomorrow. Plan: Hx EtOH abuse, reports clear for > 1 yr Hx esophageal/gastric/duodenal ulcers, not on PPI as recommended Uncontrolled nausea/emesis/hematemesis - now controlled, not further hematemesis Hx GERD Hx Medication non-compliance Off protonix and octreotide drips, now on IVP q12 protonix Zofran PRN Continue IVF 150cc/hr NS Remain NPO pending EGD 8am tmr as per Dr. Reynoso Discussed and reviewed with attending, Dr. Reynoso <Marya Reynoso V - Last Filed: 04/19/18 23:54> Meds - Medications Medications: Current Medications Sodium Chloride (Sodium Chloride 0.9%) 1,000 mls @ 150 mls/hr IV .Q6H40M [facility] Last Admin: 04/19/18 10:09 Dose: 150 mls/hr Morphine Sulfate (Morphine) 1 mg IVP Q4H PRN PRN Reason: Pain, severe (8-10) Last Admin: 04/18/18 20:49 Dose: 1 mg Ondansetron HCl (Zofran Inj) 4 mg IVP Q4H PRN PRN Reason: Nausea/Vomiting Last Admin: 04/18/18 22:34 Dose: 4 mg Pantoprazole Sodium (Protonix Inj) 40 mg IVP Q12 [facility] Last Admin: 04/19/18 21:46 Dose: 40 mg Results - Vital Signs Recent Vital Signs: Last Vital Signs Temp 98.4 F 04/19/18 18:29 Pulse 75 04/19/18 18:29 Resp 19 04/19/18 18:29 BP 116/78 04/19/18 18:29 Pulse Ox 96 04/19/18 18:29 - Labs Result Diagrams: 04/19/18 13:20 04/19/18 13:20 Labs: Laboratory Results - last 24 hr 04/19/18 04/19/18 04/19/18 03:00 06:00 06:00 WBC RBC Hgb 12.4 L Hct 36.3 L MCV MCH MCHC RDW Plt Count MPV Gran % Lymph % (Auto) [place] % (Auto) Eos % (Auto) Baso % (Auto) Gran # Lymph # (Auto) [place] # (Auto) Eos # (Auto) Baso # (Auto) Sodium Potassium Chloride Carbon Dioxide Anion Gap BUN Creatinine Est GFR ( Amer) Est GFR (Non-Af Amer) POC Glucose (mg/dL) Random Glucose Calcium Total Bilirubin AST ALT Alkaline Phosphatase Total Protein Albumin Globulin Albumin/Globulin Ratio TSH 3rd Generation Urine Color Yellow Urine Appearance Clear Urine pH 6.5 Ur Specific [place] 1.020 Urine Protein Negative Urine Glucose (UA) Negative Urine Ketones Negative Urine Blood Trace-intact H Urine Nitrate Negative Urine Bilirubin Negative Urine Urobilinogen 0.2 Ur Leukocyte Esterase Negative Urine RBC 1 - 3 Urine WBC 1 - 3 Ur Epithelial Cells 0 - 2 Urine Bacteria Rare Urine Opiates Screen Positive H Urine Methadone Screen Negative Ur Barbiturates Screen Negative Ur Phencyclidine Scrn Negative Ur Amphetamines Screen Negative U Benzodiazepines Scrn Negative U Oth Cocaine Metabols Positive H U Cannabinoids Screen Positive H 04/19/18 04/19/18 04/19/18 06:00 06:00 09:00 WBC 13.6 H RBC 3.96 Hgb 12.3 L Hct 36.2 L 37.5 L MCV 91.4 MCH 31.1 MCHC 34.0 RDW 13.4 Plt Count 262 MPV 10.3 Gran % 77.6 H Lymph % (Auto) 15.1 L [place] % (Auto) 7.1 H Eos % (Auto) 0.1 L Baso % (Auto) 0.1 Gran # 10.55 H Lymph # (Auto) 2.1 [place] # (Auto) 1.0 H Eos # (Auto) 0.0 Baso # (Auto) 0.01 Sodium 142 Potassium 4.2 Chloride 105 Carbon Dioxide 30 Anion Gap 12 BUN 14 Creatinine 0.8 Est GFR ( Amer) > 60 Est GFR (Non-Af Amer) > 60 POC Glucose (mg/dL) Random Glucose 108 Calcium 8.9 Total Bilirubin 0.7 AST 42 ALT 31 Alkaline Phosphatase 53 Total Protein 6.3 Albumin 3.6 Globulin 2.7 Albumin/Globulin Ratio 1.4 TSH 3rd Generation Urine Color Urine Appearance Urine pH Ur Specific [place] Urine Protein Urine Glucose (UA) Urine Ketones Urine Blood Urine Nitrate Urine Bilirubin Urine Urobilinogen Ur Leukocyte Esterase Urine RBC Urine WBC Ur Epithelial Cells Urine Bacteria Urine Opiates Screen Urine Methadone Screen Ur Barbiturates Screen Ur Phencyclidine Scrn Ur Amphetamines Screen U Benzodiazepines Scrn U Oth Cocaine Metabols U Cannabinoids Screen 04/19/18 04/19/18 04/19/18 13:20 13:20 13:20 WBC 11.9 H RBC 3.74 Hgb 11.5 L Hct 34.4 L MCV 92.0 MCH 30.7 MCHC 33.4 RDW 13.4 Plt Count 229 MPV 9.9 Gran % 71.5 H Lymph % (Auto) 21.5 L [place] % (Auto) 6.4 H Eos % (Auto) 0.5 L Baso % (Auto) 0.1 Gran # 8.52 H Lymph # (Auto) 2.6 [place] # (Auto) 0.8 H Eos # (Auto) 0.1 Baso # (Auto) 0.01 Sodium 139 Potassium 4.1 Chloride 107 Carbon Dioxide 28 Anion Gap 8 L BUN 14 Creatinine 0.7 L Est GFR ( Amer) > 60 Est GFR (Non-Af Amer) > 60 POC Glucose (mg/dL) Random Glucose 92 Calcium 8.6 Total Bilirubin 0.6 AST 23 ALT 31 Alkaline Phosphatase 48 Total Protein 5.7 L Albumin 3.3 Globulin 2.4 Albumin/Globulin Ratio 1.4 TSH 3rd Generation 0.39 L Urine Color Urine Appearance Urine pH Ur Specific [place] Urine Protein Urine Glucose (UA) Urine Ketones Urine Blood Urine Nitrate Urine Bilirubin Urine Urobilinogen Ur Leukocyte Esterase Urine RBC Urine WBC Ur Epithelial Cells Urine Bacteria Urine Opiates Screen Urine Methadone Screen Ur Barbiturates Screen Ur Phencyclidine Scrn Ur Amphetamines Screen U Benzodiazepines Scrn U Oth Cocaine Metabols U Cannabinoids Screen 04/19/18 22:07 WBC RBC Hgb Hct MCV MCH MCHC RDW Plt Count MPV Gran % Lymph % (Auto) [place] % (Auto) Eos % (Auto) Baso % (Auto) Gran # Lymph # (Auto) [place] # (Auto) Eos # (Auto) Baso # (Auto) Sodium Potassium Chloride Carbon Dioxide Anion Gap BUN Creatinine Est GFR ( Amer) Est GFR (Non-Af Amer) POC Glucose (mg/dL) 84 Random Glucose Calcium Total Bilirubin AST ALT Alkaline Phosphatase Total Protein Albumin Globulin Albumin/Globulin Ratio TSH 3rd Generation Urine Color Urine Appearance Urine pH Ur Specific [place] Urine Protein Urine Glucose (UA) Urine Ketones Urine Blood Urine Nitrate Urine Bilirubin Urine Urobilinogen Ur Leukocyte Esterase Urine RBC Urine WBC Ur Epithelial Cells Urine Bacteria Urine Opiates Screen Urine Methadone Screen Ur Barbiturates Screen Ur Phencyclidine Scrn Ur Amphetamines Screen U Benzodiazepines Scrn U Oth Cocaine Metabols U Cannabinoids Screen Attending/Attestation - Attestation I have personally seen and examined this patient.: Yes I have fully participated in the care of the patient.: Yes I have reviewed all pertinent clinical information: Yes Notes (Text): This is an addendum to GI consult report dictated by the [employer].The patient was seen and examined earlier. Medical records, lab studies, imagings were reviewed. Last 24 hours events reviewed. Agreed with the above treatment plan as outlined in [employer] 's notes the with the addition of the following previous endoscopy done by Dr. Hays reports was reviewed Present the patient is weak and stopped smoking or alcohol more than a year On examination abdomen soft no tenderness Continue PPI Patient had episodes of vomiting prior to hematemesis likely cause should include Adrianne-Crowell tear or peptic ulcer disease and erosive esophagitis should also be considered as a differential diagnosis continue PPI for EGD in a.m. 04/19/18 23:49
--- NOTE | 2018-04-19 23:42 | CON ---
DATE: 04/19/2018 CARDIOLOGY CONSULTATION REASON FOR CONSULTATION: Sinus bradycardia. HISTORY OF PRESENT ILLNESS: The patient is a 48-year-old white male who has a history of extensive peptic ulcer disease, gastric and duodenal ulcer, and a history of bleeding in the past, but never required blood transfusion. The patient presented because of recurrent vomiting and eventually had blood-stained vomitus. The patient is experiencing epigastric discomfort. He denies any retrosternal chest pain and is unaware of any prior cardiac history. SOCIAL HISTORY: Patient is a nonsmoker; he quit alcohol abuse; but he uses opiates, cocaine, and cannabinoids. MEDICATIONS: Morphine sulfate 1 mg intravenously every 4 hours, Protonix 40 mg intravenously twice a day, normal saline 150 mL an hour, Zofran 4 mg intravenously every 4 hours p.r.n. PHYSICAL EXAMINATION: GENERAL: The patient is a middle-aged male who does not appear to be in any distress. VITAL SIGNS: Blood pressure 111/69, heart rate 64, temperature 98.3, respirations 20. HEENT: Normocephalic. CHEST: Clear. HEART: S1, S2 regular. ABDOMEN: Mild epigastric tenderness. EXTREMITIES: No edema. LABORATORY DATA: Today's hemoglobin and hematocrit 12.3 and 36.2, white count 13.6, platelet count 162,000. Today's SMA-7 is entirely within normal limit. Liver enzymes are within normal limit. Lipase is within normal limit. REVIEW OF TEST RESULTS: Urine drug screen is positive for opiates, cocaine, and cannabinoids. EKG revealed sinus bradycardia at the rate of 45. Abdomen and pelvis CT scan, no significant interval change and no acute findings. ASSESSMENT: 1. Cocaine, opiate, and cannabinoid abuse. 2. Extensive peptic ulcer disease with repeated emesis and bleeding, rule out Adrianne-Nagel syndrome. RECOMMENDATIONS: Continue current intravenous Protonix and p.r.n. IV Zofran as well as no intravenous hydration. Obtain an echocardiogram. Errol Bird MD
[2018-04-20] MEDS: Sodium Chloride 0.9% 1,000 ML IV SCH (06:51)
--- NOTE | 2018-04-20 06:57 | CP.PCM.PN ---
Objective - Vital Signs/Intake and Output Vital Signs (last 24 hours): Temp Pulse Resp BP Pulse Ox 98.4 F 43 L 19 116/78 96 04/19/18 18:29 04/20/18 05:57 04/19/18 18:29 04/19/18 18:29 04/19/18 18:29 Intake and Output: 04/19/18 04/20/18 18:59 06:59 Intake Total 0 Balance 0 - Medications Medications: Current Medications Sodium Chloride (Sodium Chloride 0.9%) 1,000 mls @ 150 mls/hr IV .Q6H40M [facility] Last Admin: 04/20/18 06:51 Dose: 150 mls/hr Morphine Sulfate (Morphine) 1 mg IVP Q4H PRN PRN Reason: Pain, severe (8-10) Last Admin: 04/18/18 20:49 Dose: 1 mg Ondansetron HCl (Zofran Inj) 4 mg IVP Q4H PRN PRN Reason: Nausea/Vomiting Last Admin: 04/20/18 06:49 Dose: 4 mg Pantoprazole Sodium (Protonix Inj) 40 mg IVP Q12 [facility] Last Admin: 04/19/18 21:46 Dose: 40 mg - Labs Labs: 04/19/18 13:20 04/19/18 13:20 PT 10.5 SECONDS (9.4-12.5) 04/18/18 09:00 INR 0.91 (0.93-1.08) L 04/18/18 09:00 APTT 29.2 Seconds (25.1-36.5) 04/18/18 09:00
[2018-04-20 07:14] LABS: FREE T4 0.9 ng/dL (0.78-2.19)
[2018-04-20] MEDS: Morphine 2 mg/ml ISec IVP PRN ×2 (08:11→15:41)
[2018-04-20 09:38] LABS: BASO # 0.01 K/mm3 (0.0-2.0); BASO % 0.1 % (0.0-3.0); EOS # 0.1 (0.0-0.7); EOS % 1.7 % (1.5-5.0); GRAN # 5.03 (1.4-6.5); LYMPH # 1.9 (1.2-3.4); LYMPH % 24.6 % (22.0-35.0); MEAN CELL VOLUME 92.5 fl (80.0-105.0); MEAN CORPUSCULAR HEMOGLOBIN 31.1 pg (25.0-35.0); MEAN CORPUSCULAR HGB CONC 33.6 g/dl (31.0-37.0); MEAN PLATELET VOLUME 10.4 fl (7.0-11.0); MONO # 0.7 (0.1-0.6); MONO % 8.6 % (1.0-6.0); RBC 3.86 10^6/uL (3.5-6.1); RED CELL DISTRIBUTION WIDTH 13.3 % (11.5-14.5); WHITE BLOOD COUNT 7.8 10^3/ul (4.5-11.0)
[2018-04-20 09:48] LABS: ALB/GLOB RATIO 1.3 (1.1-1.8); ALBUMIN 3.3 g/dL (3.0-4.8); ALT/SGPT 39 U/L (7-56); AST/SGOT 38 U/L (17-59); BLOOD UREA NITROGEN 15 mg/dL (7-21); CALCIUM 8.5 mg/dL (8.4-10.5); GFR AFRICAN-AMERICAN > 60; GFR NON-AFRICAN AMERICAN > 60
[2018-04-20] MEDS ORDERED: Magnesium 2 gm/50 ml NS 2 GM/50 ML BAG IVPB ONE (10:07)
[2018-04-20] MEDS ORDERED: Midazolam 2 MG/2 ML VIAL ONE (12:25)
[2018-04-20] MEDS ORDERED: Propofol 10 mg/ml Inj (20 ML) ONE (12:25)
[2018-04-20] MEDS ORDERED: Sodium Chloride 0.9% 1,000 ML IV SCH (13:00)
[2018-04-20] MEDS ORDERED: Morphine 2 mg/2 mL syringe IVP PRN (15:33)
--- NOTE | 2018-04-20 15:44 | CP.PCM.PN ---
<Shahbaz Gonzalez - Last Filed: 04/20/18 16:33> Subjective - Date & Time of Evaluation Date of Evaluation: 04/20/18 Time of Evaluation: 15:33 - Subjective Subjective: Pt was seen this AM at bedside prior to EGD. Pt. reported no acute events overnight however, this AM patient had complaints of nausea w/ dry heaving and production of NBNB sputum as well as abdominal pain. Pain was reported as being sharp non radiating and associated w/ episodes of dry heaving. No Fever/ Chills, BENJAMIN, BV, Dizzines, CP, SOB, COUGH, hematuria, dysuria, Diarrhea /Constipation. Objective - Vital Signs/Intake and Output Vital Signs (last 24 hours): Temp Pulse Resp BP Pulse Ox 98.3 F 47 L 19 130/81 99 04/20/18 13:21 04/20/18 13:21 04/20/18 13:21 04/20/18 13:21 04/20/18 13:21 Intake and Output: 04/20/18 04/20/18 06:59 18:59 Intake Total 0 Balance 0 - Medications Medications: Current Medications Sodium Chloride (Sodium Chloride 0.9%) 1,000 mls @ 150 mls/hr IV .Q6H40M [facility] Last Admin: 04/20/18 06:51 Dose: 150 mls/hr Sodium Chloride (Sodium Chloride 0.9%) 1,000 mls @ 100 mls/hr IV .Q10H [facility] Morphine Sulfate (Morphine) 1 mg IVP Q4H PRN PRN Reason: Pain, severe (8-10) Last Admin: 04/20/18 08:11 Dose: 1 mg Ondansetron HCl (Zofran Inj) 4 mg IVP Q4H PRN PRN Reason: Nausea/Vomiting Last Admin: 04/20/18 11:48 Dose: 4 mg Pantoprazole Sodium (Protonix Inj) 40 mg IVP Q12 [facility] Last Admin: 04/20/18 10:13 Dose: 40 mg Promethazine HCl (Phenergan Rectal Supp) 25 mg RC Q6 PRN PRN Reason: Nausea/Vomiting - Labs Labs: 04/20/18 08:30 04/20/18 08:30 PT 10.5 SECONDS (9.4-12.5) 04/18/18 09:00 INR 0.91 (0.93-1.08) L 04/18/18 09:00 APTT 29.2 Seconds (25.1-36.5) 04/18/18 09:00 - Constitutional Appears: In Acute Distress (moderate acute distress; ) - Head Exam Head Exam: ATRAUMATIC, NORMOCEPHALIC - Eye Exam Eye Exam: EOMI. absent: Scleral icterus - ENT Exam ENT Exam: Mucous Membranes Moist, Normal Exam - Respiratory Exam Respiratory Exam: Clear to Ausculation Bilateral. absent: Rhonchi, Respiratory Distress - Cardiovascular Exam Cardiovascular Exam: REGULAR RHYTHM. absent: Murmur - GI/Abdominal Exam GI & Abdominal Exam: Tenderness, Normal Bowel Sounds Additional comments: Epigastric tenderness - Extremities Exam Extremities Exam: absent: Pedal Edema Additional comments: 2+ TP/DP BL - Neurological Exam Neurological Exam: Alert, Awake, Oriented x3 - Skin Skin Exam: Dry, Intact, Warm Assessment and Plan - Assessment and Plan (Free Text) Assessment: 48 yo male with self reported past medical history of GERD, gastric, duodenal, and esophageal ulcers who presented to [facility] ED complaining of frequent uncontrolled hematemesis prior to admission. Today, patient H/H stabilizing, and pt. remains symptomatic, VSS. On floor, pt. noted to be bradycardic. Cardiology consulted and echo performed today; GI consulted and patient underwent EGD today as well. Plan: Hemetemesis Possible Etiologies include: Adrianne crowell vs. PUD vs. esophagitis Denies ETOH use for past year and half Previous EGD 06/2017: Unremarkable, stomach bx taken showing negative h. 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 Anemia Hgb on admission 14.2 on admission; 12 today Most likely dilutional 2/2 IVF Continue following H/H Daily Pt. asymptomatic; VSS GI/DVT ppx: Protonix/SCD Pt. advised to follow up with PMD Dr. Tomlin upon discharge Case discussed w/ attending Dr. Stephany Gonzalez D.O. PGY1 <Naida Hammond - Last Filed: 04/20/18 17:23> Objective - Vital Signs/Intake and Output Vital Signs (last 24 hours): Temp Pulse Resp BP Pulse Ox 98.3 F 47 L 19 130/81 99 04/20/18 13:21 04/20/18 13:21 04/20/18 13:21 04/20/18 13:21 04/20/18 13:21 Intake and Output: 04/20/18 04/20/18 06:59 18:59 Intake Total 0 Balance 0 - Medications Medications: Current Medications Sodium Chloride (Sodium Chloride 0.9%) 1,000 mls @ 150 mls/hr IV .Q6H40M [facility] Last Admin: 04/20/18 06:51 Dose: 150 mls/hr Sodium Chloride (Sodium Chloride 0.9%) 1,000 mls @ 100 mls/hr IV .Q10H [facility] Morphine Sulfate (Morphine) 1 mg IVP Q4H PRN PRN Reason: Pain, severe (8-10) Ondansetron HCl (Zofran Inj) 4 mg IVP Q4H PRN PRN Reason: Nausea/Vomiting Last Admin: 04/20/18 11:48 Dose: 4 mg Pantoprazole Sodium (Protonix Inj) 40 mg IVP Q12 [facility] Last Admin: 04/20/18 10:13 Dose: 40 mg Promethazine HCl (Phenergan Rectal Supp) 25 mg RC Q6 PRN PRN Reason: Nausea/Vomiting Last Admin: 04/20/18 15:37 Dose: 25 mg - Labs Labs: 04/20/18 08:30 04/20/18 08:30 PT 10.5 SECONDS (9.4-12.5) 04/18/18 09:00 INR 0.91 (0.93-1.08) L 04/18/18 09:00 APTT 29.2 Seconds (25.1-36.5) 04/18/18 09:00 Attending/Attestation - Attestation I have personally seen and examined this patient.: Yes I have fully participated in the care of the patient.: Yes I have reviewed all pertinent clinical information, including history, physical exam and plan: Yes Notes (Text): 04/20/18 17:20 48 year old male wiht past medical history of GERD, PUD and substance abuse who presented with complaint of hematemesis. He was started on iv protonix and antiemetics. CT abd/pelvis was reviewed. He was seen by GI and is s/p EGD today which showed reflux esophagitis, gastritis and erythematous duodenopathy. He is on PPI and diet is advanced to liquids today. Cardiology evaluation was appreciated for bradycardia. Echocardiogram was done with pending report. He was counselled on risks of continued substance abuse. UTox was positive for opiates, cocaine and cannabinoids. Will replete and repeat lytes (magnesium). D/c planning possibly tomorrow if patient is tolerating diet. Naida Hammond MD Hospitalist.
--- NOTE | 2018-04-20 16:39 | PN ---
DATE: 04/20/2018 SUBJECTIVE: The patient is still nauseous, continuous epigastric discomfort. His heart rate is in the lower 40s. He denies any dizziness. PHYSICAL EXAMINATION: VITAL SIGNS: Blood pressure 176/83, heart rate currently 49, temperature 98.3, respirations 19. HEENT: Normocephalic. CHEST: Clear. HEART: S1 and S2, regular. ABDOMEN: Epigastric tenderness. EXTREMITIES: Show no edema. LABORATORY DATA: Today's hemoglobin and hematocrit 12 and 35.7. White count and platelet count are within normal limits. Today's SMA-7 is entirely within normal limits. Magnesium is 1.6, below normal. ASSESSMENT: 1. Status post cocaine abuse. 2. Sinus bradycardia, most likely vasovagal response. The patient has continuous epigastric discomfort and nausea. 3. Hypomagnesemia. 4. Cocaine, cannabinoid, and opiate abuse. RECOMMENDATIONS: The patient did receive intravenous magnesium sulfate and replacement. Continue normal saline infusion and p.r.n. IV Zofran. Case was discussed with the medical team. The patient can undergo EGD with premedications 0.5 of IV atropine and keep atropine on board in the endoscopy suite. Case was discussed with a GI fellow who will update me. Errol Bird MD
[2018-04-21] MEDS: Sodium Chloride 0.9% 1,000 ML IV SCH (02:34)
[2018-04-21 06:49] LABS: BASO # 0.02 K/mm3 (0.0-2.0); BASO % 0.2 % (0.0-3.0); EOS # 0.1 (0.0-0.7); EOS % 0.9 % (1.5-5.0); GRAN # 6.95 (1.4-6.5); GRAN % 67.8 % (50.0-68.0); HEMOGLOBIN 11.9 g/dL (14.0-18.0); LYMPH # 2.4 (1.2-3.4); MEAN CORPUSCULAR HEMOGLOBIN 30.7 pg (25.0-35.0); MEAN CORPUSCULAR HGB CONC 34.6 g/dl (31.0-37.0); MEAN PLATELET VOLUME 10.2 fl (7.0-11.0); MONO # 0.8 (0.1-0.6); MONO % 8.1 % (1.0-6.0); RBC 3.87 10^6/uL (3.5-6.1); RED CELL DISTRIBUTION WIDTH 12.8 % (11.5-14.5); WHITE BLOOD COUNT 10.3 10^3/ul (4.5-11.0)
[2018-04-21 07:04] LABS: MEAN CELL VOLUME 88.9 fl (80.0-105.0)
--- NOTE | 2018-04-21 07:32 | CP.PCM.PN ---
Subjective - Date & Time of Evaluation Date of Evaluation: 04/21/18 Time of Evaluation: 08:50 - Subjective Subjective: GI Progress Note for Dr. Angeles Camarillo, IM PGY-3 Patient seen and examined at bedside. Feeling much better, tolerating liquid diet well. Reports no pain, no nausea, no new episodes of emesis. No acute events overnight reported. As per Medicine team, to be discharged today. Patient ready for discharge, and states he will be compliant with Protonix this time. Objective - Vital Signs/Intake and Output Vital Signs (last 24 hours): Temp Pulse Resp BP Pulse Ox 98.1 F 39 L 19 123/81 99 04/20/18 17:52 04/21/18 06:00 04/20/18 17:52 04/20/18 17:52 04/20/18 17:52 Intake and Output: 04/21/18 04/21/18 06:59 18:59 Intake Total 600 Output Total 200 Balance 400 - Medications Medications: Current Medications Sodium Chloride (Sodium Chloride 0.9%) 1,000 mls @ 150 mls/hr IV .Q6H40M [facility] Last Admin: 04/21/18 02:34 Dose: 150 mls/hr Sodium Chloride (Sodium Chloride 0.9%) 1,000 mls @ 100 mls/hr IV .Q10H [facility] Morphine Sulfate (Morphine) 1 mg IVP Q4H PRN PRN Reason: Pain, severe (8-10) Ondansetron HCl (Zofran Inj) 4 mg IVP Q4H PRN PRN Reason: Nausea/Vomiting Last Admin: 04/20/18 20:02 Dose: 4 mg Pantoprazole Sodium (Protonix Inj) 40 mg IVP Q12 [facility] Last Admin: 04/20/18 10:13 Dose: 40 mg Promethazine HCl (Phenergan Rectal Supp) 25 mg RC Q6 PRN PRN Reason: Nausea/Vomiting Last Admin: 04/20/18 15:37 Dose: 25 mg - Labs Labs: 04/21/18 06:00 04/20/18 08:30 PT 10.5 SECONDS (9.4-12.5) 04/18/18 09:00 INR 0.91 (0.93-1.08) L 04/18/18 09:00 APTT 29.2 Seconds (25.1-36.5) 04/18/18 09:00 - Additional Findings Additional findings: - Constitutional Appears: Non-toxic, No Acute Distress, Chronically Ill - Head Exam Head Exam: ATRAUMATIC, NORMAL INSPECTION, NORMOCEPHALIC - Eye Exam Eye Exam: EOMI, Normal appearance. absent: Conjunctival injection, Scleral icterus Pupil Exam: absent: Fixed, Irregular - ENT Exam ENT Exam: Mucous Membranes Moist - Neck Exam Neck exam: Positive for: Full Rom, Normal Inspection - Respiratory Exam Respiratory Exam: Clear to Auscultation Bilateral, NORMAL BREATHING PATTERN. absent: Accessory Muscle Use, Chest Wall Tenderness, Decreased Breath Sounds, Rales, Rhonchi, Wheezes, Respiratory Distress - Cardiovascular Exam Cardiovascular Exam: REGULAR RHYTHM, RRR, +S1, +S2. absent: Bradycardia, Tachycardia, Irregular Rhythm, JVD, +S4 - GI/Abdominal Exam GI & Abdominal Exam: Normal Bowel Sounds, Soft. absent: Diminished Bowel Sounds , Distended, Firm, Guarding, Hyperactive Bowel Sounds, Hypoactive Bowel Sounds, Rigid, Tenderness - Extremities Exam Extremities exam: Positive for: full ROM, normal capillary refill, normal inspection, pedal pulses present. Negative for: calf tenderness, joint swelling , pedal edema, tenderness - Neurological Exam Neurological exam: Awake and Alert, Oriented x3, following all commands appropriately, moving all extremities spontaneously - Psychiatric Exam Psychiatric exam: Normal Affect, Normal Mood - Skin Skin Exam: Dry, Intact, Normal Color, Warm Assessment and Plan - Assessment and Plan (Free Text) Assessment: This is a 48 yo M with PMH of GERD, extensive GI ulcer disease (gastric, duodenal, and esophageal), chronic back pain, and medication non-compliance who presents with complaint of frequent uncontrolled emesis and then hematemesis, concerning for Adrianne-Nagel tear. S/p EGD without tear or bleeding site, tolerating diet, no further emesis. To be discharged home today as per primary team. Plan: Hx EtOH abuse, reports clear for > 1 yr Hx esophageal/gastric/duodenal ulcers, not on PPI at home as recommended Uncontrolled nausea/emesis/hematemesis - now controlled, not further hematemesis Hx GERD Hx Medication non-compliance Cocaine and Marijuana positive on UDS Switched to PO protonix 40mg daily Tolerating diet well No bleeding sites or Adrianne-nagel tears on EGD yesterday Instructed patient to be compliant on protonix therapy as outpatient Instructed patient to avoid further cocaine use To be discharged today as per primary team Discussed and reviewed with attending, Dr. Reynoso
[2018-04-21 07:42] LABS: ALB/GLOB RATIO 1.3 (1.1-1.8); ALT/SGPT 32 U/L (7-56); AST/SGOT 22 U/L (17-59); BLOOD UREA NITROGEN 11 mg/dL (7-21); CALCIUM 8.2 mg/dL (8.4-10.5); GFR AFRICAN-AMERICAN > 60; GFR NON-AFRICAN AMERICAN > 60
--- NOTE | 2018-04-21 07:56 | CARD ---
APPROVED REPORT EXAM: Two-dimensional and M-mode echocardiogram with Doppler and color Doppler. INDICATION EVALUATE LVFX 2D DIMENSIONS Left Atrium (2D)3.6 (1.6-4.0cm)IVSd0.8 (0.7-1.1cm) LVDd4.9 (3.9-5.9cm)PWd1.0 (0.7-1.1cm) LVDs3.1 (2.5-4.0cm)FS (%) 36.7 % LVEF (%)66.5 (>50%) M-Mode DIMENSIONS Aortic Root3.30 (2.2-3.7cm)Aortic Cusp Exc.1.90 (1.5-2.0cm) Aortic Valve AoV Peak Reavkmyj582.0cm/Dangelo Peak GR.10mmHg Mitral Valve MV E Ootqdzav527.0cm/sMV A Rtnemgrv26.3cm/sE/A ratio1.4 TDI Lateral E' Peak V16.10cm/sMedial E' Peak V9.85cm/sE/Lateral E'8.0 E/Medial E'13.1 Pulmonary Valve PV Peak Moluuyug89.2cm/sPV Peak Grad.2mmHg Tricuspid Valve TR Peak Sklvedqg879lt/sRAP [id number] Peak Gr.20mmHg [id number] LEFT VENTRICLE The left ventricle is normal size. There is normal left ventricular wall thickness. The left ventricular function is normal. The left ventricular ejection fraction is within the normal range. There is normal LV segmental wall motion. RIGHT VENTRICLE The right ventricle is normal size. The right ventricular systolic function is normal. ATRIA The left atrium size is normal. The right atrium size is normal. The interatrial septum is intact with no evidence for an atrial septal defect. AORTIC VALVE The aortic valve is normal in structure. No aortic regurgitation is present. There is no aortic valvular stenosis. MITRAL VALVE The mitral valve is normal in structure. Mitral regurgitation is mild. TRICUSPID VALVE The tricuspid valve is normal in structure. There is mild tricuspid regurgitation. PULMONIC VALVE The pulmonary valve is normal in structure. GREAT VESSELS The aortic root is normal in size. The IVC is normal in size and collapses >50% with inspiration. PERICARDIAL EFFUSION There is no pleural effusion. There is no pericardial effusion. <Conclusion> Normal chamber size. Normal LV systolic function. Mild MR and TR.
[2018-04-21 09:05] VITALS: BP 126/91; PULSE 50; RESP 18; TEMP 97.8; O2SAT 100
--- NOTE | 2018-04-21 12:25 | CP.PCM.DIS ---
<Shahbaz Gonzalez - Last Filed: 04/21/18 12:38> Provider - Provider Date of Admission: 04/18/18 11:44 Attending physician: Naida Hammond MD Primary care physician: Palmer Tomlin MD Consults: GI - Dr. Reynoso, [place] Cardiac - Errol Gordon Time Spent in preparation of Discharge (in minutes): 40 Diagnosis - Discharge Diagnosis (1) Cyclical vomiting with nausea Status: Acute Priority: High (2) Esophagitis determined by endoscopy Status: Acute Priority: High (3) Hematemesis/vomiting blood Status: Acute Priority: High (4) Abdominal pain Status: Acute Priority: Low (5) Gastritis Status: Acute Priority: High (6) Nausea and vomiting Status: Acute Priority: Low Hospital Course - Lab Results Lab Results: Most Recent Lab Values WBC 10.3 10^3/ul (4.5-11.0) D 04/21/18 06:00 RBC 3.87 10^6/uL (3.5-6.1) 04/21/18 06:00 Hgb 11.9 g/dL (14.0-18.0) L 04/21/18 06:00 Hct 34.4 % (42.0-52.0) L 04/21/18 06:00 MCV 88.9 fl (80.0-105.0) D 04/21/18 06:00 MCH 30.7 pg (25.0-35.0) 04/21/18 06:00 MCHC 34.6 g/dl (31.0-37.0) 04/21/18 06:00 RDW 12.8 % (11.5-14.5) 04/21/18 06:00 Plt Count 227 10^3/uL (120.0-450.0) 04/21/18 06:00 MPV 10.2 fl (7.0-11.0) 04/21/18 06:00 Gran % 67.8 % (50.0-68.0) 04/21/18 06:00 Lymph % (Auto) 23.0 % (22.0-35.0) 04/21/18 06:00 [place] % (Auto) 8.1 % (1.0-6.0) H 04/21/18 06:00 Eos % (Auto) 0.9 % (1.5-5.0) L 04/21/18 06:00 Baso % (Auto) 0.2 % (0.0-3.0) 04/21/18 06:00 Gran # 6.95 (1.4-6.5) H 04/21/18 06:00 Lymph # (Auto) 2.4 (1.2-3.4) 04/21/18 06:00 [place] # (Auto) 0.8 (0.1-0.6) H 04/21/18 06:00 Eos # (Auto) 0.1 (0.0-0.7) 04/21/18 06:00 Baso # (Auto) 0.02 K/mm3 (0.0-2.0) 04/21/18 06:00 PT 10.5 SECONDS (9.4-12.5) 04/18/18 09:00 INR 0.91 (0.93-1.08) L 04/18/18 09:00 APTT 29.2 Seconds (25.1-36.5) 04/18/18 09:00 Sodium 137 mmol/L (132-148) 04/21/18 06:00 Potassium 3.7 mmol/L (3.6-5.0) 04/21/18 06:00 Chloride 103 mmol/L (98-107) 04/21/18 06:00 Carbon Dioxide 27 mmol/L (21-33) 04/21/18 06:00 Anion Gap 11 (10-20) 04/21/18 06:00 BUN 11 mg/dL (7-21) 04/21/18 06:00 Creatinine 0.8 mg/dl (0.8-1.5) 04/21/18 06:00 Est GFR ( Amer) > 60 04/21/18 06:00 Est GFR (Non-Af Amer) > 60 04/21/18 06:00 POC Glucose (mg/dL) 84 mg/dL (65-110) 04/19/18 22:07 Random Glucose 83 mg/dL (70-110) 04/21/18 06:00 Calcium 8.2 mg/dL (8.4-10.5) L 04/21/18 06:00 Phosphorus 2.8 mg/dL (2.5-4.5) 04/20/18 06:10 Magnesium 1.7 mg/dL (1.7-2.2) 04/21/18 06:00 Total Bilirubin 0.5 mg/dL (0.2-1.3) 04/21/18 06:00 AST 22 U/L (17-59) 04/21/18 06:00 ALT 32 U/L (7-56) 04/21/18 06:00 Alkaline Phosphatase 51 U/L (38-126) 04/21/18 06:00 Lactate Dehydrogenase 454 U/L (333-699) 04/18/18 09:00 Total Creatine Kinase 127 U/L (35-230) 04/18/18 09:00 Troponin I < 0.01 ng/mL 04/18/18 09:00 Total Protein 5.4 g/dL (5.8-8.3) L 04/21/18 06:00 Albumin 3.0 g/dL (3.0-4.8) 04/21/18 06:00 Globulin 2.3 gm/dL 04/21/18 06:00 Albumin/Globulin Ratio 1.3 (1.1-1.8) 04/21/18 06:00 Lipase 67 U/L (23-300) 04/18/18 09:00 Free T4 0.90 ng/dL (0.78-2.19) 04/20/18 06:10 TSH 3rd Generation 0.81 mIU/mL (0.46-4.68) 04/20/18 06:10 Urine Color Yellow (YELLOW) 04/19/18 06:00 Urine Appearance Clear (CLEAR) 04/19/18 06:00 Urine pH 6.5 (4.7-8.0) 04/19/18 06:00 Ur Specific [place] 1.020 (1.005-1.035) 04/19/18 06:00 Urine Protein Negative mg/dL (<30 mg/dL) 04/19/18 06:00 Urine Glucose (UA) Negative mg/dL (NEGATIVE) 04/19/18 06:00 Urine Ketones Negative mg/dL (NEGATIVE) 04/19/18 06:00 Urine Blood Trace-intact (NEGATIVE) H 04/19/18 06:00 Urine Nitrate Negative (NEGATIVE) 04/19/18 06:00 Urine Bilirubin Negative (NEGATIVE) 04/19/18 06:00 Urine Urobilinogen 0.2 E.U./dL (<1 E.U./dL) 04/19/18 06:00 Ur Leukocyte Esterase Negative Quinn/uL (NEGATIVE) 04/19/18 06:00 Urine RBC 1 - 3 /hpf (0-2) 04/19/18 06:00 Urine WBC 1 - 3 /hpf (0-6) 04/19/18 06:00 Ur Epithelial Cells 0 - 2 /hpf (0-5) 04/19/18 06:00 Urine Bacteria Rare (NEG) 04/19/18 06:00 Urine Opiates Screen Positive (NEGATIVE) H 04/19/18 06:00 Urine Methadone Screen Negative (NEGATIVE) 04/19/18 06:00 Ur Barbiturates Screen Negative (NEGATIVE) 04/19/18 06:00 Ur Phencyclidine Scrn Negative (NEGATIVE) 04/19/18 06:00 Ur Amphetamines Screen Negative (NEGATIVE) 04/19/18 06:00 U Benzodiazepines Scrn Negative (NEGATIVE) 04/19/18 06:00 U Oth Cocaine Metabols Positive (NEGATIVE) H 04/19/18 06:00 U Cannabinoids Screen Positive (NEGATIVE) H 04/19/18 06:00 Blood Type O POSITIVE 04/18/18 09:00 Antibody Screen Negative 04/18/18 09:00 BBK History Checked Patient has bt 04/18/18 09:00 - Hospital Course Hospital Course: 48 yo male with self reported past medical history of GERD, gastric, duodenal, and esophageal ulcers who [place] [facility] complaining of frequent uncontrolled hematemesis prior to admission. In ED pt. underwent CT AP showing only diverticulosis without diverticulitis. During course of admission, patient noted to be anemic however/ H/H remained stable, and patient remained hemodynamically stable throughout hospitalization. Patient had intractable nausea, vomiting, and abdominal pain which required frequent doses of zofran as well as one time doses of reglan, and promethazine. Patient's pain was controlled. Patient also noted to be bradycardic during admission; Cardiology consulted and echo performed 04/20. Echo showed normal chamber size; normal systolic function; Mild MR and TR. GI was consulted and patient underwent EGD 04/20 as well. EGD findings revealed reflux esophagitis, gastritis, and erythematous duodenopathy. Biopsy was taken; awaiting path report for evaluation. Pt. was seen and examined this morning at bedside w/ medical team; Pt. has been stable since both procedures; tolerating CLD diet well w/ no complaints of N/V or abd pain overnight as well as this morning. Patient overall appears much more comfortable and states that symptoms are significantly improved. Discussed advancing diet which patient states he that we will be able to do on his own at home. Patient was discharged in a stable condition to home. With followup instructions provided. Case reviewed and discussed with attending Dr. Stephany Gonzalez PGY1 - Date & Time of H&P Date of H&P: 04/21/18 Time of H&P: 12:51 Discharge Exam - Head Exam Head Exam: ATRAUMATIC, NORMOCEPHALIC - Eye Exam Eye Exam: EOMI, PERRL. absent: Scleral icterus - ENT Exam ENT Exam: Mucous Membranes Moist - Respiratory Exam Respiratory Exam: Clear to PA & Lateral, NORMAL BREATHING PATTERN. absent: Rhonchi, Wheezes - Cardiovascular Exam Cardiovascular Exam: Bradycardia, REGULAR RHYTHM. absent: Diastolic murmur, Systolic Murmur - GI/Abdominal Exam GI & Abdominal Exam: Normal Bowel Sounds, Soft. absent: Tenderness - Extremities Exam Additional comments: no BL LE edema; DP/ TP 2+ BL - Back Exam Back exam: absent: CVA tenderness (L), CVA tenderness (R) - Neurological Exam Neurological exam: Alert, CN II-XII Intact, Oriented x3 - Psychiatric Exam Psychiatric exam: Normal Affect, Normal Mood Discharge Plan - Discharge Medications Prescriptions: Pantoprazole [Protonix] 40 mg PO DAILY #45 ect - Follow Up Plan Condition: IMPROVED Disposition: HOME/ ROUTINE Patient education suggested?: Yes Instructions: Nausea and Vomiting, Adult (DC), Acute Abdominal Pain (DC), Acute Abdominal Pain (GEN) Additional Instructions: 1. Please follow up w/ Dr. Tomlin within 7 days regarding this admission. 2. Refrain from marijuana and cocaine use 3. Continue PPI therapy. 4. Follow up w/ GI as instructed. 5. Please go to the nearest emergency department if symptoms worsen or return. Referrals: Palmer Tomlin MD [Primary Care Provider] - Follow up with primary Marya Reynoso MD [Medical Doctor] - <Naida Hammond - Last Filed: 04/21/18 13:22> Provider - Provider Date of Admission: 04/18/18 11:44 Attending physician: Naida Hammond MD Primary care physician: Palmer Tomlin MD Hospital Course - Lab Results Lab Results: Most Recent Lab Values WBC 10.3 10^3/ul (4.5-11.0) D 04/21/18 06:00 RBC 3.87 10^6/uL (3.5-6.1) 04/21/18 06:00 Hgb 11.9 g/dL (14.0-18.0) L 04/21/18 06:00 Hct 34.4 % (42.0-52.0) L 04/21/18 06:00 MCV 88.9 fl (80.0-105.0) D 04/21/18 06:00 MCH 30.7 pg (25.0-35.0) 04/21/18 06:00 MCHC 34.6 g/dl (31.0-37.0) 04/21/18 06:00 RDW 12.8 % (11.5-14.5) 04/21/18 06:00 Plt Count 227 10^3/uL (120.0-450.0) 04/21/18 06:00 MPV 10.2 fl (7.0-11.0) 04/21/18 06:00 Gran % 67.8 % (50.0-68.0) 04/21/18 06:00 Lymph % (Auto) 23.0 % (22.0-35.0) 04/21/18 06:00 [place] % (Auto) 8.1 % (1.0-6.0) H 04/21/18 06:00 Eos % (Auto) 0.9 % (1.5-5.0) L 04/21/18 06:00 Baso % (Auto) 0.2 % (0.0-3.0) 04/21/18 06:00 Gran # 6.95 (1.4-6.5) H 04/21/18 06:00 Lymph # (Auto) 2.4 (1.2-3.4) 04/21/18 06:00 [place] # (Auto) 0.8 (0.1-0.6) H 04/21/18 06:00 Eos # (Auto) 0.1 (0.0-0.7) 04/21/18 06:00 Baso # (Auto) 0.02 K/mm3 (0.0-2.0) 04/21/18 06:00 PT 10.5 SECONDS (9.4-12.5) 04/18/18 09:00 INR 0.91 (0.93-1.08) L 04/18/18 09:00 APTT 29.2 Seconds (25.1-36.5) 04/18/18 09:00 Sodium 137 mmol/L (132-148) 04/21/18 06:00 Potassium 3.7 mmol/L (3.6-5.0) 04/21/18 06:00 Chloride 103 mmol/L (98-107) 04/21/18 06:00 Carbon Dioxide 27 mmol/L (21-33) 04/21/18 06:00 Anion Gap 11 (10-20) 04/21/18 06:00 BUN 11 mg/dL (7-21) 04/21/18 06:00 Creatinine 0.8 mg/dl (0.8-1.5) 04/21/18 06:00 Est GFR ( Amer) > 60 04/21/18 06:00 Est GFR (Non-Af Amer) > 60 04/21/18 06:00 POC Glucose (mg/dL) 84 mg/dL (65-110) 04/19/18 22:07 Random Glucose 83 mg/dL (70-110) 04/21/18 06:00 Calcium 8.2 mg/dL (8.4-10.5) L 04/21/18 06:00 Phosphorus 2.8 mg/dL (2.5-4.5) 04/20/18 06:10 Magnesium 1.7 mg/dL (1.7-2.2) 04/21/18 06:00 Total Bilirubin 0.5 mg/dL (0.2-1.3) 04/21/18 06:00 AST 22 U/L (17-59) 04/21/18 06:00 ALT 32 U/L (7-56) 04/21/18 06:00 Alkaline Phosphatase 51 U/L (38-126) 04/21/18 06:00 Lactate Dehydrogenase 454 U/L (333-699) 04/18/18 09:00 Total Creatine Kinase 127 U/L (35-230) 04/18/18 09:00 Troponin I < 0.01 ng/mL 04/18/18 09:00 Total Protein 5.4 g/dL (5.8-8.3) L 04/21/18 06:00 Albumin 3.0 g/dL (3.0-4.8) 04/21/18 06:00 Globulin 2.3 gm/dL 04/21/18 06:00 Albumin/Globulin Ratio 1.3 (1.1-1.8) 04/21/18 06:00 Lipase 67 U/L (23-300) 04/18/18 09:00 Free T4 0.90 ng/dL (0.78-2.19) 04/20/18 06:10 TSH 3rd Generation 0.81 mIU/mL (0.46-4.68) 04/20/18 06:10 Urine Color Yellow (YELLOW) 04/19/18 06:00 Urine Appearance Clear (CLEAR) 04/19/18 06:00 Urine pH 6.5 (4.7-8.0) 04/19/18 06:00 Ur Specific [place] 1.020 (1.005-1.035) 04/19/18 06:00 Urine Protein Negative mg/dL (<30 mg/dL) 04/19/18 06:00 Urine Glucose (UA) Negative mg/dL (NEGATIVE) 04/19/18 06:00 Urine Ketones Negative mg/dL (NEGATIVE) 04/19/18 06:00 Urine Blood Trace-intact (NEGATIVE) H 04/19/18 06:00 Urine Nitrate Negative (NEGATIVE) 04/19/18 06:00 Urine Bilirubin Negative (NEGATIVE) 04/19/18 06:00 Urine Urobilinogen 0.2 E.U./dL (<1 E.U./dL) 04/19/18 06:00 Ur Leukocyte Esterase Negative Quinn/uL (NEGATIVE) 04/19/18 06:00 Urine RBC 1 - 3 /hpf (0-2) 04/19/18 06:00 Urine WBC 1 - 3 /hpf (0-6) 04/19/18 06:00 Ur Epithelial Cells 0 - 2 /hpf (0-5) 04/19/18 06:00 Urine Bacteria Rare (NEG) 04/19/18 06:00 Urine Opiates Screen Positive (NEGATIVE) H 04/19/18 06:00 Urine Methadone Screen Negative (NEGATIVE) 04/19/18 06:00 Ur Barbiturates Screen Negative (NEGATIVE) 04/19/18 06:00 Ur Phencyclidine Scrn Negative (NEGATIVE) 04/19/18 06:00 Ur Amphetamines Screen Negative (NEGATIVE) 04/19/18 06:00 U Benzodiazepines Scrn Negative (NEGATIVE) 04/19/18 06:00 U Oth Cocaine Metabols Positive (NEGATIVE) H 04/19/18 06:00 U Cannabinoids Screen Positive (NEGATIVE) H 04/19/18 06:00 Blood Type O POSITIVE 04/18/18 09:00 Antibody Screen Negative 04/18/18 09:00 BBK History Checked Patient has bt 04/18/18 09:00 Attending/Attestation - Attestation I have personally seen and examined this patient.: Yes I have fully participated in the care of the patient.: Yes I have reviewed all pertinent clinical information, including history, physical exam and plan: Yes Notes (Text): 04/21/18 13:19 48 year old male wiht past medical history of GERD, PUD and substance abuse who presented with complaint of hematemesis. He was started on iv protonix and antiemetics. He was seen by GI and is s/p EGD yesterday which showed reflux esophagitis, gastritis and erythematous duodenopathy. He was on PPI and diet was advanced which he tolerated. He was seen by cardiology for bradycaria. He was counselled on risks of continued substance abuse. UTox was positive for opiates, cocaine and cannabinoids. Overall patient's symptoms have improved. He is tolerating diet. He is discharged home to follow up with pmd. Continue with PPI. Follow up on biopsy. Counselled on risks of continued substance abuse. Naida Hammond MD Hospitalist.
== END 2018-04-21 14:55 | disposition home or self-care (01) | DRG 174 ==
LOC: ED 08:55 → ERH 11:44 → 3RNO 14:04
PROVIDERS: ADMIT Internal Medicine; ATTEND Internal Medicine
PROC: 0DB98ZX Excision of Duodenum, Via Natural or Artificial Opening Endoscopic, Diagnostic (ICD-10-PCS; 2018-04-20)
PROC: 0DB48ZX Excision of Esophagogastric Junction, Via Natural or Artificial Opening Endoscopic, Diagnostic (ICD-10-PCS; 2018-04-20)
PROC: 0DB68ZX Excision of Stomach, Via Natural or Artificial Opening Endoscopic, Diagnostic (ICD-10-PCS; principal; 2018-04-20 08:30)
DX: K92.0 Hematemesis (principal); F11.10 Opioid abuse, uncomplicated; F14.10 Cocaine abuse, uncomplicated; G43.A0 Cyclical vomiting, in migraine, not intractable; K29.70 Gastritis, unspecified, without bleeding; K21.0 Gastro-esophageal reflux disease with esophagitis; K31.89 Other diseases of stomach and duodenum; K57.90 Diverticulosis of intestine, part unspecified, without perforation or abscess without bleeding; E83.42 Hypomagnesemia; D64.9 Anemia, unspecified; F12.10 Cannabis abuse, uncomplicated; R00.1 Bradycardia, unspecified; M54.9 Dorsalgia, unspecified; G89.29 Other chronic pain; Z76.5 Malingerer [conscious simulation]; Z87.891 Personal history of nicotine dependence; Z91.14 Patient's other noncompliance with medication regimen; Z87.11 Personal history of peptic ulcer disease

== ENCOUNTER 2019-03-12 14:56 | Emergency (ER) | payer SELFPAY ==
[2019-03-12 14:57] VITALS: BMI 21.9
[2019-03-12 15:21] VITALS: BP 114/77; TEMP 98.6; O2SAT 97
[2019-03-12 16:33] VITALS: PULSE 86; RESP 16
--- NOTE | 2019-03-12 17:03 | ED PDOC ---
Arrival/HPI - General Chief Complaint: Eye Problem Time Seen by Provider: 03/12/19 14:58 - History of Present Illness Narrative History of Present Illness (Text): 03/12/19 15:20 A 49 year old male, whose past medical history includes GERD, extensive GI ulcer disease, chronic back pain, presents to the emergency department complaining of feeling a foreign body in left eye. Patient reports states he was grinding a metal railing and was wearing safety glasses when he felt something go in his eye. Patient denies any vision changes, or any other complaints. PMD: Dr. Tomlin Time/Duration: Other (earlier today) Symptom Onset: Sudden Symptom Course: Unchanged Activities at Onset: Significant Context: Work Past Medical History - Provider Review Nursing Documentation Reviewed: Yes - Past History Past History: No Previous - Infectious Disease Hx of Infectious Diseases: None - Tetanus Immunization Tetanus Immunization: Up to Date - Past Medical History Past Medical History: Unable to Obtain - Cardiac Hx Cardiac Disorders: No - Pulmonary Hx Respiratory Disorders: No - Neurological Hx Neurological Disorder: No - HEENT Hx HEENT Disorder: No - Renal Hx Renal Disorder: No - Endocrine/Metabolic Hx Endocrine Disorders: No - Hematological/Oncological Hx Blood Transfusions: No - Integumentary Hx Dermatological Disorder: Yes Other/Comment: hx snake bite - Musculoskeletal/Rheumatological Hx Musculoskeletal Disorders: No - Gastrointestinal Hx Gastrointestinal Disorders: Yes Hx Gastroesophageal Reflux: Yes - Genitourinary/Gynecological Hx Genitourinary Disorders: No - Psychiatric Hx Psychophysiologic Disorder: Yes Hx Substance Use: Yes (marijuana) Other/Comment: suicidal ideation and attempt/drug overdose w/etoh use and cut wrists - Past Surgical History Past Surgical History: No Previous - Surgical History Hx Appendectomy: Yes - Anesthesia Hx Anesthesia Reactions: No Hx Malignant Hyperthermia: No - Suicidal Assessment Feels Threatened In Home Enviroment: No Family/Social History - Physician Review Nursing Documentation Reviewed: Yes Family/Social History: No Known Family HX Smoking Status: Former Smoker Hx Alcohol Use: Yes (former) Hx Substance Use: Yes (marijuana) Hx Substance Use Treatment: No Allergies/Home Meds Allergies/Adverse Reactions: Allergies No Known Allergies Allergy (Verified 04/18/18 09:08) Review of Systems - Physician Review All systems were reviewed & negative as marked: Yes - Review of Systems Eyes: Other (foreign body in left eye). absent: Vision Changes Physical Exam Vital Signs Temp Pulse Resp BP Pulse Ox 03/12/19 16:33 86 16 97 03/12/19 15:10 98.6 F 98 H 20 114/77 97 Temperature: Afebrile Blood Pressure: Normal Pulse: Tachycardic Respiratory Rate: Normal Appearance: Positive for: Well-Appearing, Non-Toxic Pain Distress: Mild Mental Status: Positive for: Alert and Oriented X 3 - Systems Exam Head: Present: Atraumatic, Normocephalic Pupils: Present: PERRL Extroacular Muscles: Present: EOMI Conjunctiva: Present: Normal, Other (possible foreing body noted to lateral aspect of the globe; flouroscene uptake on inferior aspect of globe over sclera) Mouth: Present: Moist Mucous Membranes Respiratory/Chest: Present: Clear to Auscultation, Good Air Exchange. No: Respiratory Distress, Accessory Muscle Use Cardiovascular: Present: Regular Rate and Rhythm, Normal S1, S2. No: Murmurs Abdomen: No: Tenderness, Distention, Peritoneal Signs Upper Extremity: Present: Normal Inspection. No: Cyanosis, Edema Lower Extremity: Present: Normal Inspection. No: Edema Neurological: Present: GCS=15, CN II-XII Intact, Speech Normal Skin: Present: Warm, Dry, Normal Color. No: Rashes Psychiatric: Present: Alert, Oriented x 3, Normal Insight, Normal Concentration Medical Decision Making ED Course and Treatment: 03/12/19 15:20 Impression: 49 year old male presenting to the emergency room complaining of Plan: -- Reassess and disposition Prior Visits: Notes and results from previous visits were reviewed. Progress Notes: 03/12/19 16:30 Removed small amounts of foreign body from the area of the lateral aspect of globe. Patient will be discharged and given prescription with advisement to follow up with ophthalmology. - Scribe Statement The provider has reviewed the documentation as recorded by the [facility] All medical record entries made by the Scribe were at my direction and person ally dictated by me. I have reviewed the chart and agree that the record accurately reflects my personal performance of the history, physical exam, medical decision making, and the department course for this patient. I have also personally directed, reviewed, and agree with the discharge instructions and disposition. Disposition/Present on Arrival - Present on Arrival Any Indicators Present on Arrival: No History of DVT/PE: No History of Uncontrolled Diabetes: No Urinary Catheter: No History of Decub. Ulcer: No History Surgical Site Infection Following: None - Disposition Have Diagnosis and Disposition been Completed?: Yes Diagnosis: Corneal abrasion Disposition: HOME/ ROUTINE Disposition Time: 16:10 Condition: GOOD Discharge Instructions (ExitCare): Corneal Abrasion (DC) Additional Instructions: JC ROBISON, thank you for letting us take care of you today. The emergency medical care you received today was directed at your acute symptoms. If you were prescribed any medication, please fill it and take as directed. It may take several days for your symptoms to resolve. Return to the Emergency Department if your symptoms worsen, do not improve, or if you have any other problems. Please contact your doctor or call one of the physicians/clinics you have been referred to that are listed on the Patient Visit Information form that is included in your discharge packet. Bring any paperwork you were given at discharge with you along with any medications you are taking to your follow up visit. Our treatment cannot replace ongoing medical care by a primary care provider outside of the emergency department. Thank you for allowing the [facility] team to be part of your care today. Follow up with Dr. Garcia (ophthalmology) in 2 days for re-evaluation and further management. Prescriptions: Polymyxin/Trimethoprim Sulfate [Polytrim Ophth Soln] 2 drop OS Q6 #1 bottle Referrals: Paulo Garcia MD [Staff Provider] - Follow up with primary Forms: [employer] (French)
== END 2019-03-12 16:36 | disposition home or self-care (01) ==
LOC: ED 14:56
DX: S05.02XA Injury of conjunctiva and corneal abrasion without foreign body, left eye, initial encounter (principal); X58.XXXA Exposure to other specified factors, initial encounter; Y92.69 Other specified industrial and construction area as the place of occurrence of the external cause; Y99.0 Civilian activity done for income or pay